=== PATIENT | female | born 1940 | race Caucasian/White ===

== ENCOUNTER → 2016-11-25 | Outpatient (CLI) | payer MEDICARE, BC ==
--- NOTE | 2016-11-25 20:00 | BD ---
EXAMINATION TYPE: MG DEXA axial skeleton. DATE OF EXAM: 11/25/2016 1:33 PM COMPARISON: 2013 CLINICAL HISTORY: 76-year-old female osteopenia Height: 5'1 Weight: 134 FRAX RISK QUESTIONS: Alcohol (3 or more units per day): no Family History (Parent hip fracture): no Glucocorticoids (More than 3mos): no (Ex: prednisone, prednisolone, methylprednisolone, dexamethasone, and hydrocortisone). History of Fracture in Adulthood: no Secondary Osteoporosis: 1. Type 1 Diabetes: no 2. Hyperthyroidism: no 3. Menopause before 45: no 4. Malnutrition: no 5. Chronic liver disease: no Rheumatoid Arthritis: no Current Tobacco Use: no RISK FACTORS HISTORY OF: History of Wrist Fracture: When: 20 years ago Other Fractures since Age 48: When: wrist 20 years ago Active: Postmenopausal woman: MEDICATIONS: Thyroid Medications: Which medication: Levothyroxine How Lon years Osteoporosis Medications: Which medication: reclast How Long: > 5 years Additional Medications: parkinson's, blood pressure , cholesterol Additional History: osteopenia EXAM MEASUREMENTS: Bone mineral densitometry was performed using the [employer] System. Bone mineral density as measured about the Lumbar spine is: ----- L1-L4(G/cm2): 0.916 T Score Values are as follows: ----- L2: -2.7 ----- L3: -1.7 ----- L4: -1.3 ----- L1-L4:-2.2 Bone mineral density has: Increased 2.8% since study of: 06/23/2014 Bone mineral density about the R hip (g/cm2): 0.762 Bone mineral density about the L hip (g/cm2): 0.767 T Score values are as follows: -----R Neck: -2.0 -----L Neck: -2.0 -----R Intertrochanter: -1.4 -----L Intertrochanter: -1.8 Bone mineral density has: Decreased -5.8% since study of: 06/23/2014 IMPRESSION: Osteoporosis as indicated by T score values in the lumbar spine. There is increased fracture risk and therapy is usually indicated based on age. Re-Screen 1-2 years. NOTE: T-SCORE=SD OF THE YOUNG ADULT MEAN.
== END | disposition home or self-care (01) ==
LOC: RADBDWWP 13:13
PROVIDERS: ATTEND Family Medicine
DX: M81.0 Age-related osteoporosis without current pathological fracture (principal)
CPT/HCPCS: 77080

== ENCOUNTER → 2017-03-03 | Outpatient (CLI) | payer MEDICARE, BC ==
[~2017-03-03] MED LIST: SODIUM CHLORIDE 0.9% 250 ML in EMPTY BAG 1 BAG IV PRN; SODIUM CHLORIDE 0.9% 500 ML in EMPTY BAG 1 BAG IV PRN; ZOLEDRONIC ACID 5 MG in SODIUM CHLORIDE 0.9% 100 ML IV ONE
[2017-03-03 14:08] VITALS: BP 142/93; PULSE 61; RESP 18; TEMP 97.5
== END | disposition home or self-care (01) ==
LOC: PROCWHC3 13:31
PROVIDERS: ATTEND Family Medicine
DX: M81.0 Age-related osteoporosis without current pathological fracture (principal)
CPT/HCPCS: 96365; J3489

== ENCOUNTER → 2017-05-27 | Outpatient (CLI) | payer MEDICARE, BC ==
[2017-05-27 14:22] LABS: Non-African American GFR(MDRD) >60 (>60 ml/min/1.73 sqM)
== END | disposition home or self-care (01) ==
LOC: LABWHC1 13:30
PROVIDERS: ATTEND Psychiatry & Neurology Neurology
DX: D32.9 Benign neoplasm of meninges, unspecified (principal); R25.1 Tremor, unspecified
CPT/HCPCS: 36415; 82565

== ENCOUNTER → 2017-06-07 | Outpatient (CLI) | payer MEDICARE, BC ==
--- NOTE | 2017-06-07 13:03 | MR ---
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 TECHNIQUE: Multiplanar, multisequence images of the brain and brainstem were acquired before and aft er administration of 12 mL IV MultiHance. Diffusion weighted imaging is performed. FINDINGS: No evidence for acute infarction, hemorrhage, mass effect, midline shift, herniation, effacement of b anthony cisterns, or extra-axial fluid collection. Redemonstrated round mildly T2 hyperintense, homogeneously enhancing extra-axial mass measuring 7 mm along the superior right frontal convexity. There is moderate generalized atrophy. No hydrocephalus. Major intracranial flow voids are intact. Dominant left vertebral artery. T2/FLAIR weighted sequences show mild scattered burden of right white matter foci in both cerebral he mispheres, unchanged from prior. Midline structures demonstrate normal morphology. The craniocervical junction is normal. Post contrast images demonstrate no evidence of pathologic enhancement. Dural venous sinuses are pat ent. Dental amalgam artifacts distorting the sinuses. Globes appear intact. IMPRESSION: Stable 7 mm enhancing extra-axial mass along the superior right frontal convexity suggestive of a men ingioma. Stable mild burden of chronic small vessel ischemic disease. Moderate atrophy is also stable.
== END | disposition home or self-care (01) ==
LOC: RADMRIMAIN 11:37
PROVIDERS: ATTEND Psychiatry & Neurology Neurology
DX: G31.9 Degenerative disease of nervous system, unspecified (principal); G93.89 Other specified disorders of brain; I67.82 Cerebral ischemia
CPT/HCPCS: 70553; A9577

== ENCOUNTER → 2018-01-02 | Day surgery (SDC) | payer MEDICARE, BC ==
[2018-01-02 07:27] VITALS: RESP 16; BMI 25.3
[2018-01-02 08:36] VITALS: BP 145/78; PULSE 56; TEMP 97.8
--- NOTE | 2018-01-02 09:09 | PCN ---
PROCEDURE NOTE The patient is a 77-year-old white female who underwent a routine mammogram after which additional views were requested and performed on 12/10/2017. On the additional views, the patient was noted to have no suspicious cluster of microcalcifications in the right breast. However, she was noted to have a suspicious group of heterogeneous calcifications in the middle depth upper outer quadrant of the left breast. The radiographs were reviewed and this area was documented in conjunction with the radiologist. A breast examination had been performed. The patient had denied any dominant mass or nodules of concern. No nipple discharge or changes and on physical examination, no dominant mass or nodules of concern in either breast on multi- positional exam and no axillary adenopathy of concern. It was discussed with the patient that she had an area of calcifications of concern in the left breast and the option of stereotactic biopsy was discussed with the patient. Risks including bleeding, infection, reaction to the anesthetic, inability to adequately sample the area was discussed with the patient as well. The patient wished to proceed with a stereotactic core biopsy. PROCEDURE: This is a dictation of the biopsy. The patient presented to the stereotactic unit for stereotactic core biopsy of the left breast. The location in the breast was in the middle depth upper outer quadrant. The approach used to target this was lateral to medial. The patient was placed on the stereo table and the area of concern was identified. The skin was then prepped using Betadine and 1% lidocaine with bicarb was used to anesthetize the skin and internally into the breast. The area of concern was identified. Needle was driven to the correct coordinates. Multiple core biopsies were obtained using a vacuum assisted 9-gauge biopsy device. Specimen radiograph was performed and calcifications were identified. A [employer] marker was then placed. Radiograph revealed position of the marker to be in the correct location. The specimen is sent to Pathology and patient will follow with Dr. Thomason in one week. The patient tolerated the procedure in stable condition. Please note that radiographs following the placement of the marker did reveal the marker was in correct location. MMODL / IJN: [id number] /
--- NOTE | 2018-01-02 12:13 | MM ---
EXAMINATION TYPE: MG stereo VAD BX LT DATE OF EXAM: 01/02/2018 COMPARISON: Outside institution mammograms dated 12/01/2017 and 12/10/2017 CLINICAL HISTORY: Indeterminate left breast calcifications for which stereotactic guided biopsy was recommended TECHNIQUE: Stereotactic guided core biopsy of left breast. FINDINGS: The procedure of stereotactic guided core biopsy was explained to the patient. Benefits, alternatives, and risks were discussed. An informed consent was then obtained. Preprocedural timeout was performed. The shortness pathway for biopsy was chosen. Shortness pathway was lateral medial approach. I performed the localization, then surgeon, Dr. Thomason performed the remainder of the procedure. A vacuum assisted biopsy gun was used to obtain multiple core samples. The patient tolerated the procedure well without any immediate complication. The patient was kept in the radiology department for short stay after the procedure and then discharged home in stable condition. Targeted calcifications are identified in specimen mammogram. Post biopsy mammogram shows the clip to appear in satisfactory position relative to the targeted area of concern on the preprocedure images. IMPRESSION: SUCCESSFUL, UNCOMPLICATED STEREOTACTIC GUIDED CORE BIOPSY OF INDETERMINATE CALCIFICATIONS IN THE UPPER OUTER LEFT BREAST IN , FULL PATHOLOGY RESULTS TO FOLLOW. 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 SEE SURGICAL PATHOLOGY CANCER CASE SUMMARY AND COMMENT Recommendation Surgical consult of the left breast. [facility]
== END ==
LOC: RADMAMWWP 07:09
PROVIDERS: ATTEND Surgery
DX: D05.12 Intraductal carcinoma in situ of left breast (principal)
CPT/HCPCS: 88305; 88342; 88341; 19081; A4648; J2001

== ENCOUNTER 2018-01-20 08:06 | Day surgery (SDC) | payer MEDICARE, BC ==
[2018-01-19 10:55] VITALS: BMI 26.2
[~2018-01-20 08:06] MED LIST changes: +DEXAMETHASONE SOD PHOSPHATE 10 MG/ML 1 ML VIAL IV ONE; +HEPARIN SODIUM,PORCINE 5,000 UNIT/ML 1 ML VIAL SQ ONE; +LIDOCAINE 1% 20 ML VIAL (10MG/ML) FOR IV START INTRADERMA PRN; +MIDAZOLAM 2 MG/2 ML VIAL IV PRN; +MORPHINE SULFATE 2 MG/ML SYRINGE IV PRN; +ONDANSETRON 4 MG/2 ML VIAL IVP ONE; +Pre Op ABX Message 1 EACH MISC MISCELLANE ONE; +SCOPOLAMINE 1.5MG/72HR PATCH TRANSDERM ONE; -SODIUM CHLORIDE 0.9% 250 ML in EMPTY BAG 1 BAG IV PRN; -SODIUM CHLORIDE 0.9% 500 ML in EMPTY BAG 1 BAG IV PRN; -ZOLEDRONIC ACID 5 MG in SODIUM CHLORIDE 0.9% 100 ML IV ONE
[2018-01-20] MEDS ORDERED: ALPRAZolam 0.25 MG TAB PO ONE (09:02)
[2018-01-20] MEDS: LACTATED RINGERS 1,000 ML IV SCH ×3 (09:03→12:36)
[2018-01-20] MEDS ORDERED: LIDOCAINE 1% INJ 10MG/ML (20 ML MDV) SQ ONE ×3 (09:35→12:20)
[2018-01-20] MEDS ORDERED: SODIUM BICARB 4% 5 ML VIAL (0.48 MEQ/ML) MISCELLANE ONE (09:35)
[2018-01-20] MEDS ORDERED: HEPARIN SODIUM,PORCINE 5,000 UNIT/ML 1 ML VIAL SQ ONE (11:02)
[2018-01-20] MEDS ORDERED: fentaNYL (PF) 50 MCG/ML 2 ML AMP ONE (11:33)
[2018-01-20] MEDS ORDERED: LIDOCAINE 1% INJ 10MG/ML (20 ML MDV) ONE (11:33)
[2018-01-20] MEDS ORDERED: SUCCINYLCHOLINE CHLORIDE 100 MG/5 ML SYR IV ONE (11:33)
[2018-01-20] MEDS ORDERED: PROPOFOL 10 MG/ML 20 ML VIAL IV ONE (11:33)
--- NOTE | 2018-01-20 12:17 | P.OP ---
Date of Procedure: 01/20/18 Preoperative Diagnosis: Ductal carcinoma in situ Postoperative Diagnosis: Same Procedure(s) Performed: Left breast lumpectomy Anesthesia: RONEL Surgeon: Marnie Thomason Estimated Blood Loss (ml): 15 IV fluids (ml): 300 Pathology: other (Breast tissue) Condition: stable Disposition: PACU Indications for Procedure: Ductal carcinoma in situ of the left breast Operative Findings: Dense breast tissue Description of Procedure: Patient was taken to the operating room and following induction of general anesthesia the left breast was prepped and draped in a sterile fashion. An incision was made near the needle placed for localization. Wide excision of the surrounding tissue was performed. The specimen was painted for orientation and sent to radiology for evaluation. Radiographic confirmation the area of concern had been removed was obtained. The wound was well irrigated. The deep tissues were closed using 3-0 Vicryl suture. The skin was closed using 4-0 Monocryl. Steri-Strips were applied. All instrument and sponge counts were correct at the end of the case. Patient tolerated the procedure in stable condition.
--- NOTE | 2018-01-20 12:19 | P.DS ---
Providers Attending physician: Marnie Thomason Primary care physician: Kiran Keller Plan - Discharge Summary New Discharge Prescriptions: No Action Cetirizine HCl [Zyrtec] 10 mg PO DAILY Levothyroxine Sodium [Synthroid] 75 mcg PO DAILY Enalapril/Hydrochlorothiazide [Vaseretic 5-12.5 mg] 1 each PO DAILY Simvastatin [Zocor] 40 mg PO DAILY Montelukast [Singulair] 10 mg PO HS Bonilla/D3/Mag11/Zinc/Director Of Emergency Nursing/Vidal/Bor [Caltrate 600+D Plus Tablet] 1 each PO DAILY Dicyclomine [Bentyl] 10 mg PO QID Citalopram Hydrobromide [CeleXA] 10 mg PO DAILY L.acidoph,Paracasei, B.lactis [Probiotic] 1 each PO DAILY Discharge Medication List Cetirizine HCl [Zyrtec] 10 mg PO DAILY 12/14/14 [History] Enalapril/Hydrochlorothiazide [Vaseretic 5-12.5 mg] 1 each PO DAILY 12/14/14 [ History] Levothyroxine Sodium [Synthroid] 75 mcg PO DAILY 12/14/14 [History] Montelukast [Singulair] 10 mg PO HS 12/14/14 [History] Simvastatin [Zocor] 40 mg PO DAILY 12/14/14 [History] Bonilla/D3/Mag11/Zinc/Director Of Emergency Nursing/Vidal/Bor [Caltrate 600+D Plus Tablet] 1 each PO DAILY 06/12 [History] Citalopram Hydrobromide [CeleXA] 10 mg PO DAILY 01/19/18 [History] Dicyclomine [Bentyl] 10 mg PO QID 01/19/18 [History] L.acidoph,Paracasei, B.lactis [Probiotic] 1 each PO DAILY 01/19/18 [History] Follow up Appointment(s)/Referral(s): Marnie Thomason MD [STAFF PHYSICIAN] - 1 Week Activity/Diet/Wound Care/Special Instructions: do not drive today do not drive if tking narcotic pain medication may shower after 48 hours wear surgical bra at all times Discharge Disposition: HOME SELF-CARE
[2018-01-20] MEDS ORDERED: IV FLUID CONTINUATION 800 ML IV ONE (12:38)
[2018-01-20 12:43] VITALS: TEMP 97
[2018-01-20 13:06] VITALS: RESP 16
[2018-01-20 14:32] VITALS: BP 171/70; PULSE 64
--- NOTE | 2018-01-20 15:25 | MM ---
EXAMINATION TYPE: MG pre op needle loc LT, MG surgical specimen LT DATE OF EXAM: 01/20/2018 COMPARISON: Previous exam 01/02/2018, 12/10/2017 CLINICAL HISTORY: Abnormal mammogram TECHNIQUE: Needle localization with wire placement and surgical excision of area of concern in the left breast. FINDINGS: The procedure of needle localization with wire placement and than surgical excision was explained to the patient. Benefits, alternatives, and risks were discussed. An informed consent was then obtained. The shortest pathway for procedure was chosen. Shortest pathway was superior- inferior approach. The overlying skin was prepped and draped in usual sterile fashion. Lidocaine buffered with bicarbonate was used as anesthetic into the skin and subcutaneous tissue up to the level of area of concern. A 7 cm needle was used. It was placed via a superior inferior approach under mammographic guidance. Subsequent 90 degrees mammogram show the needle to be in satisfactory position relative to the targeted area. At this point, wire was placed and the needle was withdrawn. The wire was fixed to patient's skin. Images were marked for surgeon. The patient tolerated the procedure well without any immediate complication. The patient was kept in the radiology department for short stay after the procedure and then taken to surgery for surgical excision. Targeted calcifications and clip and wire are identified in specimen mammogram. The patient was kept in hospital for short stay after the procedure and then discharged home in stable condition. IMPRESSION: Successful, uncomplicated needle localization with wire placement and surgical excision of suspicious group of calcifications in the left breast, full pathology results to follow. Pathology Results: Malignant LEFT BREAST (LUMPECTOMY): CHANGES CONSISTENT WITH PREVIOUS BIOPSY SITE, WITH RESIDUAL ESTIMATED 1.8 CM DUCTAL CARCINOMA IN-SITU, SOLID TYPE, INTERMEDIATE NUCLEAR GRADE, WITH MICROCALCIFICATIONS (MARGINS CLEAR - SEE COMMENT). Notes The features are generally similar to those seen in previous core biopsy material ([id number], reported 01/06/18). The current specimen shows biopsy site changes with a fairly broad residual area of ductal carcinoma in-situ that is predominantly solid and considered to exhibit an intermediate nuclear grade, with scattered microcalcifications. The margins are free of tumor, the closest margin at the inferior green inked aspect lying 1.5 mm from tumor. The template below summarized the features of this case. SURGICAL PATHOLOGY CANCER CASE SUMMARY - DCIS OF THE BREAST (Resection) Recommendation Surgical consult of the left breast. [facility]
== END 2018-01-20 14:34 | disposition home or self-care (01) ==
LOC: OR 08:06
PROVIDERS: ATTEND Surgery
DX: D05.12 Intraductal carcinoma in situ of left breast (principal); R92.0 Mammographic microcalcification found on diagnostic imaging of breast; J45.909 Unspecified asthma, uncomplicated; F41.9 Anxiety disorder, unspecified; I10 Essential (primary) hypertension; E78.5 Hyperlipidemia, unspecified; E07.9 Disorder of thyroid, unspecified; F32.9 Major depressive disorder, single episode, unspecified; Z79.890 Hormone replacement therapy; Z79.899 Other long term (current) drug therapy
CPT/HCPCS: 19301; 88307; 76098; 19281; J1644; J1100; J2405; J2001; J3010; J0330; J2704

== ENCOUNTER → 2018-04-09 | Outpatient (CLI) | payer MEDICARE, BC ==
[~2018-04-09] MED LIST changes: -DEXAMETHASONE SOD PHOSPHATE 10 MG/ML 1 ML VIAL IV ONE; -HEPARIN SODIUM,PORCINE 5,000 UNIT/ML 1 ML VIAL SQ ONE; -LIDOCAINE 1% 20 ML VIAL (10MG/ML) FOR IV START INTRADERMA PRN; -MIDAZOLAM 2 MG/2 ML VIAL IV PRN; -MORPHINE SULFATE 2 MG/ML SYRINGE IV PRN; -ONDANSETRON 4 MG/2 ML VIAL IVP ONE; -Pre Op ABX Message 1 EACH MISC MISCELLANE ONE; -SCOPOLAMINE 1.5MG/72HR PATCH TRANSDERM ONE; +SODIUM CHLORIDE 0.9% 500 ML in EMPTY BAG 1 BAG IV PRN; +ZOLEDRONIC ACID 5 MG in SODIUM CHLORIDE 0.9% 100 ML IV ONE
[2018-04-09 14:22] VITALS: BP 117/75; PULSE 71; RESP 18; TEMP 97.5
== END | disposition home or self-care (01) ==
LOC: PROCWHC3 13:55
PROVIDERS: ATTEND Family Medicine
DX: M81.0 Age-related osteoporosis without current pathological fracture (principal)
CPT/HCPCS: 96365; J3489

== ENCOUNTER → 2018-04-09 | Outpatient (CLI) | payer MEDICARE, BC ==
[2018-04-09 15:15] VITALS: BP 124/81; PULSE 62; BMI 25.3
--- NOTE | 2018-04-09 16:03 | P.GSHP ---
History of Present Illness H&P Date: 04/09/18 Patient is a 77-year-old white female status post left breast lumpectomy for ductal carcinoma in situ with clear margins performed 01-20-18. the patient was seen by medical and radiation oncology as follows she recalls and was told that she was not recommended for any further treatment. She has no complaints. - Constitutional Constitutional: Denies chills, Denies fever - EENT Eyes: denies pain, denies loss of vision Ears: deny: decreased hearing, earache, tinnitus Ears, nose, mouth and throat: Denies headache, Denies sore throat - Breasts Comment: pre cancer left breast Breasts: bilateral: as per HPI - Cardiovascular Cardiovascular: Denies chest pain, Denies shortness of breath - Respiratory Respiratory: Denies cough, Denies 7 - Gastrointestinal Gastrointestinal: Denies abdominal pain, Denies diarrhea, Denies nausea, Denies vomiting - Genitourinary (Female) Genitourinary: Denies dysuria, Denies hematuria - Menstruation Menstruation: Reports postmenopausal - Musculoskeletal Comment: arthritis - Integumentary Integumentary: Denies pruritus, Denies rash - Neurological Neurological: Denies numbness, Denies weakness - Psychiatric Psychiatric: Reports depression - Endocrine Endocrine: Denies fatigue, Denies weight change - Hematologic/Lymphatic Comment: none - Allergic/Immunologic Comment: none Past Medical History Past Medical History: Asthma, Hyperlipidemia, Hypertension, Thyroid Disorder Additional Past Medical History / Comment(s): ,varicose veins, IBS, History of Any Multi-Drug Resistant Organisms: None Reported Past Surgical History: Breast Surgery, Hysterectomy, Tonsillectomy Additional Past Surgical History / Comment(s): left breast biopsy Past Anesthesia/Blood Transfusion Reactions: No Reported Reaction Past Psychological History: Anxiety Smoking Status: Never smoker Past Alcohol Use History: None Reported Past Drug Use History: None Reported - Past Family History Mother Family Medical History: No Reported History Medications and Allergies Home Medications Medication Instructions Recorded Confirmed Type Cetirizine HCl [Zyrtec] 10 mg PO DAILY 12/14/14 04/09/18 History Enalapril/Hydrochlorothiazide 1 each PO DAILY 12/14/14 04/09/18 History [Vaseretic 5-12.5 mg] Levothyroxine Sodium [Synthroid] 75 mcg PO DAILY 12/14/14 04/09/18 History Montelukast [Singulair] 10 mg PO HS 12/14/14 04/09/18 History Simvastatin [Zocor] 40 mg PO DAILY 12/14/14 04/09/18 History Bonilla/D3/Mag11/Zinc/International Nurse/Vidal/Bor 1 each PO DAILY 03/03/17 04/09/18 History [Caltrate 600+D Plus Tablet] L.acidoph,Paracasei, B.lactis 1 each PO DAILY 01/19/18 04/09/18 History [Probiotic] Carbidopa-Levodopa 25-100 mg 1 tab PO DAILY 04/09/18 04/09/18 History [Sinemet 25-100 mg] Allergies Allergy/AdvReac Type Severity Reaction Status Date / Time No Known Allergies Allergy Verified 04/09/18 14:18 Surgical - Exam Vital Signs Pulse BP Pulse Ox 62 124/81 100 04/09/18 15:10 04/09/18 15:10 04/09/18 15:10 - General no distress - Eyes normal ocular movement - ENT no hearing loss, no congestion - Neck no masses - Respiratory normal respiratory effort, clear to auscultation - Cardiovascular Rhythm: regular Heart Sounds: normal: S1, S2 - Abdomen Abdomen: soft, non tender, no guarding, no rigid, no rebound - Integumentary rash under her left breast, appears to be a fungal infection - Neurologic no disoriented, no combative - Musculoskeletal normal gait - Psychiatric oriented to time, oriented to person, oriented to place, speech is normal, memory intact breast examination: Right breast: Multiple strokes exam no dominant masses or nodules of concern Right axilla: No adenopathy of concern Left breast: Reveals scar from prior surgery no dominant masses or nodules of concern Left axilla: No adenopathy of concern Assessment and Plan Assessment: Impression/plan: 1. Status post left breast lumpectomy for ductal carcinoma in situ 2. We will confirm the patient has had an appointment with medical and radiation oncology 3. Apparent fungal infection under the left breast will start on antifungal cream and follow up in 2 weeks Cc: Dr. Kiran Keller
== END | disposition home or self-care (01) ==
LOC: WWCWWP 14:58
PROVIDERS: ATTEND Surgery
DX: Z53.9 Procedure and treatment not carried out, unspecified reason (principal)

== ENCOUNTER → 2018-06-03 | Outpatient (CLI) | payer MEDICARE, BC ==
--- NOTE | 2018-06-03 13:15 | ECHOF ---
Referral Reason:I95.9 Hypertension MEASUREMENTS -------- HEIGHT: 154.9 cm WEIGHT: 59.0 kg BP: RVIDd: 2.2 cm (< 3.3) IVSd: 0.9 cm (0.6 - 1.1) LVIDd: 3.5 cm (3.9 - 5.3) LVPWd: 1.0 cm (0.6 - 1.1) IVSs: 1.2 cm LVIDs: 2.4 cm LVPWs: 1.2 cm LAESV Index (A-L): 20.78 ml/m Ao Diam: 3.2 cm (2.0 - 3.7) AV Cusp: 1.8 cm (1.5 - 2.6) LA Diam: 2.9 cm (2.7 - 3.8) EPSS: 0.4 cm MV E Rashid: 0.73 m/s MV DecT: 255 ms MV A Rashid: 0.83 m/s MV E/A Ratio: 0.88 RAP: 5.00 mmHg RVSP: 41.31 mmHg MV EF SLOPE: 82.85 mm/s (70 - 150) MV EXCURSION: 1.46 cm (> 18.000) FINDINGS -------- Sinus rhythm. This was a technically adequate study. The left ventricular size is normal. Left ventricular wall thickness is normal. Overall left vent ricular systolic function is normal with, an EF between 55 - 60 %. The right ventricle is normal in size and function. Normal LA size by volume 22+/-6 ml/m2. The right atrium is normal in size. Aortic valve is trileaflet and is mildly thickened. There is no evidence of aortic regurgitation. There is no evidence of aortic stenosis. The mitral valve leaflets are mildly thickened. There is trace to mild mitral regurgitation. Mild tricuspid regurgitation present. There is mild pulmonary hypertension. The right ventricular systolic pressure, as measured by Doppler, is 41.31mmHg. Trace/mild (physiologic) pulmonic regurgitation. The aortic root size is normal. Normal inferior vena cava with normal inspiratory collapse consistent with estimated right atrial pre ssure of 5 mmHg. There is no pericardial effusion. CONCLUSIONS -------- 1. Sinus rhythm. 2. This was a technically adequate study. 3. The left ventricular size is normal. 4. Left ventricular wall thickness is normal. 5. Overall left ventricular systolic function is normal with, an EF between 55 - 60 %. 6. Normal LA size by volume 22+/-6 ml/m2. 7. Aortic valve is trileaflet and is mildly thickened. 8. The mitral valve leaflets are mildly thickened. 9. There is trace to mild mitral regurgitation. 10. Mild tricuspid regurgitation present. 11. There is mild pulmonary hypertension. 12. The right ventricular systolic pressure, as measured by Doppler, is 41.31mmHg. 13. Trace/mild (physiologic) pulmonic regurgitation. 14. The aortic root size is normal. 15. There is no pericardial effusion. DYEING MACHINE TENDER: Vinnie Jackson RDCS
--- NOTE | 2018-06-08 11:33 | HM ---
HOLTER MONITOR REPORT DATE OF SERVICE: 06/03/2018 The patient was monitored for 24 hours. The baseline rhythm appeared to be a sinus mechanism with a minimum heart rate of 47 beats per minute, max heart rate 159 beats per minute and average heart rate of 69 beats per minute. were presented in less than 1% of the total beats count and presented as a single PVCs as well as in bigeminy and trigeminy. No evidence of any nonsustained VT noted. Supraventricular ectopic events were presented in less than 1% of the total beats count as well and presented in premature atrial contractions. The patient did have multiple episodes of narrow complex tachycardia represent atrial tachycardia. No evidence of sinus pause or sinus arrest noted. CONCLUSION: 1. Sinus rhythm as a baseline mechanism. 2. Rare ventricular ectopic events. 3. Rare supraventricular ectopic events. 4. The patient did have multiple episodes of paroxysmal atrial tachycardia with quite fast heart rate. 5. No evidence of sinus pause or sinus arrest. 6. The patient reported no symptoms. MMODL / IJN: [id number] /
== END | disposition home or self-care (01) ==
LOC: RADECHMAIN 11:22
PROVIDERS: ATTEND Family Medicine
DX: I49.3 Ventricular premature depolarization (principal); I47.1 Supraventricular tachycardia; I27.20 Pulmonary hypertension, unspecified; I07.1 Rheumatic tricuspid insufficiency; I05.9 Rheumatic mitral valve disease, unspecified
CPT/HCPCS: 93225; 93226; 93306

== ENCOUNTER → 2018-06-08 | Outpatient (CLI) | payer MEDICARE, BC ==
--- NOTE | 2018-06-08 17:10 | US ---
EXAMINATION TYPE: US carotid duplex BILAT DATE OF EXAM: 06/08/2018 COMPARISON: 07/03/2010 CLINICAL HISTORY: D32.0 Intracranial meningioma. EXAM MEASUREMENTS: RIGHT: Peak Systolic Velocity (PSV) cm/sec ----- Right CCA: 70.2 ----- Right ICA: 82.0 ----- Right ECA: 78.7 ICA/CCA ratio: 1.2 RIGHT: End Diastole cm/sec ----- Right CCA: 17.5 ----- Right ICA: 24.8 ----- Right ECA: 9.5 LEFT: Peak Systolic Velocity (PSV) cm/sec ----- Left CCA: 86.4 ----- Left ICA: 86.2 ----- Left ECA: 70.3 ICA/CCA ratio: 1.0 LEFT: End Diastole cm/sec ----- Left CCA: 20.4 ----- Left ICA: 26.7 ----- Left ECA: 7.5 VERTEBRALS (direction of flow): Right Vertebral: Antegrade Left Vertebral: Antegrade Rhythm: Normal No significant stenosis seen, no elevated velocities. Mild bilateral plaque. IMPRESSION: There is antegrade flow in the vertebral arteries. The images and measurements suggest l ess than 25% stenosis in both internal carotid arteries. No adverse change compared to old exam. Criteria for Assigning % of Stenosis / Diameter reduction (Estimation based on the indirect measurements of the internal carotid artery velocities (ICA PSV). 1. Normal (no stenosis)=ICA PSV < 125 cm/s: ratio < 2.0: ICA EDV<40 cm/s. 2. Less than 50% stenosis=ICA PSV < 125 cm/s: ratio < 2.0: ICA EDV<40 cm/s. 3. 50 to 69% stenosis=ICA PSV of 125 to 230 cm/s: ration 2.0 ? 4.0: ICA EDV 40-100 cm/s. 4. Greater than 70% stenosis to near occlusion= ICA PSV > 230 cm/s: ratio > 4.0: ICA EDV > 100 cm/s. 5. Near occlusion= ICA PSV velocities may be low or undetectable: variable ratio and ICA EDV. 6. Total occlusion=unable to detect flow.
--- NOTE | 2018-06-08 17:45 | XR ---
EXAMINATION TYPE: XR lumbar spine 2 or 3V DATE OF EXAM: 06/08/2018 COMPARISON: NONE HISTORY: Chronic low back pain TECHNIQUE: 3 views FINDINGS: There is a mild lumbar levorotoscoliosis. There is degenerative disc space narrowing from L 2 to L5. There is no compression fracture. Sacroiliac joints appear intact. IMPRESSION: Mild spondylotic changes and levoscoliosis. No fracture.
--- NOTE | 2018-06-08 22:40 | MR ---
EXAMINATION TYPE: MR brain wo con DATE OF EXAM: 06/08/2018 COMPARISON: Prior MRI brain June 07, 2017 and older studies. HISTORY: Intracranial meningioma TECHNIQUE: Multiplanar, multisequence imaging of the brain and brainstem is performed without IV cont rast. FINDINGS: Diffusion weighted images demonstrate no evidence of a recent infarct or other diffusion abnormality. There is no worrisome extra-axial fluid collection. There is diffuse ventricular and sulcal prominenc e consistent with diffuse cerebral atrophy. Some scattered foci of T2 hyperintensity are redemonstrat ed throughout the white matter bilaterally. Approximately 10 scattered lesions are again seen. The la rgest is 5 mm left frontal lesion axial image 20 which is stable. Midline structures demonstrate normal morphology. The craniocervical junction appears within normal limits. Normal vascular flow voids are present. Dominant left vertebral artery is redemonstrated. The re is persistent stable round T2 hyperintense 6 mm lesion high right frontal lobe axial image 29 cons istent with tiny meningioma. Visualized sinuses are clear. Globes are intact bilaterally. Less distor tion noted on current study at level of maxillary sinuses. IMPRESSION: Stable 6 mm high right frontal meningioma. Stable mild diffuse cerebral atrophy and chron ic small vessel ischemic change.
== END | disposition home or self-care (01) ==
LOC: RADUSWWP 16:33
PROVIDERS: ATTEND Family Medicine
DX: D32.0 Benign neoplasm of cerebral meninges (principal); G31.9 Degenerative disease of nervous system, unspecified; I67.82 Cerebral ischemia; I65.23 Occlusion and stenosis of bilateral carotid arteries; M47.816 Spondylosis without myelopathy or radiculopathy, lumbar region; M41.9 Scoliosis, unspecified
CPT/HCPCS: 70551; 72100; 93880

== ENCOUNTER → 2019-07-15 | Outpatient (CLI) | payer MEDICARE, BC ==
--- NOTE | 2019-07-16 09:08 | MM ---
Reason for exam: additional evaluation requested from prior study. Last mammogram was performed 1 year and 6 months ago. History: Patient is postmenopausal, has history of breast cancer at age 77, and is nulliparous. Malignant MG pre op needle loc LT of the left breast, January 20, 2018. Lumpectomy of the left breast, January 20, 2018. Malignant MG stereo VAD BX LT of the left breast, January 02, 2018. Stereotactic core biopsy of the left breast, January 02, 2018. Physical Findings: Nurse did not find any significant physical abnormalities on exam. MG 3D Diag Mammo Wo Cad BLAYNE Bilateral CC and MLO view(s) were taken. Prior study comparison: January 02, 2018, left breast mammogram, performed at [facility]. December 10, 2017, bilateral mammogram, performed at [facility]. December 01, 2017, bilateral mammogram, performed at [facility]. July 08, 2016, bilateral mammogram, performed at [facility]. The breast tissue is heterogeneously dense. This may lower the sensitivity of mammography. Post lumpectomy changes in the left upper outer quadrant. Stable scattered fat necrosis calcifications. Short interval follow up left breast to assess any evolving changes. These results were verbally communicated with the patient and result sheet given to the patient on 07/15/19. ASSESSMENT: Probably benign, BI-RAD 3 RECOMMENDATION: Follow-up diagnostic mammogram of the left breast in 6 months.
== END | disposition home or self-care (01) ==
LOC: RADMAMWWP 15:41
PROVIDERS: ATTEND Family Medicine
DX: R92.1 Mammographic calcification found on diagnostic imaging of breast (principal); Z85.3 Personal history of malignant neoplasm of breast; Z78.0 Asymptomatic menopausal state
CPT/HCPCS: 77066; G0279; 77062

== ENCOUNTER → 2019-08-06 | Outpatient (CLI) | payer MEDICARE, BC ==
[2019-08-06 10:11] LABS: HCT 39.7 % (34.0-46.0); HGB 12.6 gm/dL (11.4-16.0); MCH 32.6 pg (25.0-35.0); MCHC 31.7 g/dL (31.0-37.0); MCV 102.9 fL (80.0-100.0); Macrocytosis Slight; Mean Platelet Volume 8.8; Platelet Count 186 k/uL (150-450); RBC 3.86 m/uL (3.80-5.40); RDW 14.3 % (11.5-15.5); WBC 5.3 k/uL (3.8-10.6)
[2019-08-06 10:24] LABS: Albumin 4.1 g/dL (3.5-5.0); Calcium 9.6 mg/dL (8.4-10.2); Potassium 4.5 mmol/L (3.5-5.1); Total Bilirubin 0.7 mg/dL (0.2-1.3); Total Protein 6.3 g/dL (6.3-8.2)
[2019-08-06 10:27] LABS: INR 0.9 (<1.2); Partial Thromboplastin Time 22.1 sec (22.0-30.0); Prothrombin Time 10.1 sec (9.0-12.0)
[2019-08-06 11:25] LABS: Appearance,Urine Clear (Clear); Bilirubin,Urine Negative (Negative); Blood,Urine Negative (Negative); Color,Urine Yellow; Glucose,Urine (UA) Negative (Negative); Ketones,Urine Negative (Negative); Leukocyte Esterase,Urine Negative (Negative); Nitrite,Urine Negative (Negative); PH, Urine 7.5 (5.0-8.0); Protein,Urine Negative (Negative); Specific Gravity,Urine 1.011 (1.001-1.035); Urobilinogen,Urine <2.0 mg/dL (<2.0)
== END | disposition home or self-care (01) ==
LOC: LABPAT 09:22
PROVIDERS: ATTEND Orthopaedic Surgery
DX: Z01.812 Encounter for preprocedural laboratory examination (principal); M17.11 Unilateral primary osteoarthritis, right knee
CPT/HCPCS: 36415; 80053; 81003; 85027; 85610; 85730; 87070

== ENCOUNTER 2019-08-17 11:43 | Day surgery (SDC) | payer MEDICARE, BC ==
[~2019-08-17 11:43] MED LIST changes: +ACETAMINOPHEN TAB 500 MG TAB PO ONE; +DEXAMETHASONE SOD PHOSPHATE 10 MG/ML 1 ML VIAL IV ONE; +GABAPENTIN 300 MG CAP PO ONE; +LIDOCAINE 1% 20 ML VIAL (10MG/ML) FOR IV START INTRADERMA PRN; +MELOXICAM 7.5 MG TAB PO ONE; +ONDANSETRON 4 MG/2 ML VIAL IVP ONE; +ROPIVACAINE 246.25 MG, EPINEPHrine 0.5 MG, KETOROLAC 30 MG, cloNIDine HCL/PF 80 MCG, WA... MISCELLANE ONE; -SODIUM CHLORIDE 0.9% 500 ML in EMPTY BAG 1 BAG IV PRN; +TRANEXAMIC ACID 1,000 MG in SODIUM CHLORIDE 0.9% 100 ML IVPB ONE; -ZOLEDRONIC ACID 5 MG in SODIUM CHLORIDE 0.9% 100 ML IV ONE; +fentaNYL (PF) 50 MCG/ML 2 ML AMP IV PRN
[2019-08-17] MEDS: LACTATED RINGERS 1,000 ML IV SCH (12:38)
[2019-08-17] MEDS ORDERED: MIDAZOLAM 2 MG/2 ML VIAL IVP ONE (12:51)
[2019-08-17] MEDS ORDERED: BISACODYL 10 MG SUPP RECTAL PRN (14:05)
[2019-08-17] MEDS ORDERED: HYDROmorphone 0.5 MG/0.5 ML SYRINGE IVP PRN ×3 (14:05)
[2019-08-17] MEDS ORDERED: DIAZEPAM 5 MG TAB PO PRN (14:05)
[2019-08-17] MEDS ORDERED: NALOXONE 0.4 MG/ML 1 ML VIAL IV PRN (14:05)
[2019-08-17] MEDS ORDERED: HYDROcodone/APAP 5-325MG 1 EACH TAB PO PRN ×2 (14:05)
[2019-08-17] MEDS ORDERED: MAGNESIUM HYDROXIDE 2,400 MG/10 ML CUP PO PRN (14:05)
[2019-08-17] MEDS ORDERED: ONDANSETRON 4 MG/2 ML VIAL IVP PRN (14:05)
[2019-08-17] MEDS ORDERED: NA PHOS,M-B/NA PHOS,DI-BA 133 ML ENEMA RECTAL PRN (14:05)
[2019-08-17] MEDS ORDERED: LIDOCAINE 1% INJ 10MG/ML (20 ML MDV) ONE (14:09)
[2019-08-17] MEDS ORDERED: MIDAZOLAM 2 MG/2 ML VIAL ONE (14:09)
[2019-08-17] MEDS ORDERED: SODIUM CHLORIDE 0.9% 100 ML BAG ONE (14:09)
[2019-08-17] MEDS ORDERED: fentaNYL (PF) 50 MCG/ML 2 ML AMP ONE (14:09)
[2019-08-17] MEDS ORDERED: TRANEXAMIC ACID 1,000 MG/10 ML VIAL ONE (14:09)
[2019-08-17] MEDS ORDERED: SUCCINYLCHOLINE CHLORIDE 100 MG/5 ML SYR IV ONE (14:09)
[2019-08-17] MEDS ORDERED: PROPOFOL 10 MG/ML 20 ML VIAL IV ONE (14:09)
[2019-08-17] MEDS ORDERED: ROPIVACAINE 0.2%-NS ON-Q PUMP 1,090 MG, EMPTY PAIN BALL 1 EACH MISCELLANE PRN ×2 (14:38→15:29)
[2019-08-17] MEDS ORDERED: ceFAZolin 3,000 MG in SODIUM CHLORIDE 0.9% IRRIGATIO 3,000 ML IRRIGATION ONE (14:43)
--- NOTE | 2019-08-17 14:48 | P.ANPRN ---
Procedure Note - Anesthesia - Nerve Block Performed Right Adductor Canal Infusion Time Out Performed: Yes Date of Procedure: 08/17/19 Procedure Start Time: 12:51 Procedure Stop Time: 13:02 Location of Patient Procedure: PreOp Indication: Acute Post-Operative Pain, Requested by Surgeon Specifically requested for management of pain by DrFior: Dedrick Hassan Sedation Type: Sedate with meaningful contact maintained Preparation: Sterile Prep Position: Supine Catheter Depth at Skin (cm): 6 Catheter: Indwelling Needle Types: Pajunk Needle Gauge: 18 Ultrasound used to visualize needle placement: Yes Ultrasound used to observe medication spread: Yes Injectate: 0.5% Ropivacaine (see comment for volume) (20 cc) Blood Aspirated: No Pain Paresthesia on Injection Noted: No Resistance on Injection: Normal Image Stored and Saved: Yes Events: Uneventful and Well Tolerated
--- NOTE | 2019-08-17 15:31 | P.OP ---
Date of Procedure: 08/17/19 Preoperative Diagnosis: Severe osteoarthritis right knee Postoperative Diagnosis: Severe osteoarthritis right knee Procedure(s) Performed: Right total knee arthroplasty Implants: Meza and Nephew Journey II CR Oxinium cruciate retaining femoral component size 4, right Meza [employer] Nephew Journey right nonporous tibial baseplate size 3 Meza [employer] Nephew Journey II, XLPE Deep Dished articular insert, size 10 mm, Size 3-4 right Meza [employer]hew Journey BCS resurfacing oval patellar component, 29 mm All components were cemented using Palacos R bone cement.. The articulation is Oxinium on polyethylene. Anesthesia: spinal Surgeon: Dedrick Hassan Tile Mechanic #1: Minnie Naranjo Estimated Blood Loss (ml): 25 Pathology: other (Bone and cartilage) Condition: stable Disposition: PACU Indications for Procedure: After failure of conservative treatment we discussed the surgical and nonsurgical treatment options at length. Patient wishes to proceed with a total knee arthroplasty. Complications specific to this procedure were discussed at length, including but not limited to infection, bleeding, stiffness, and nerve injury. Patient is aware of all these complications and informed consent was obtained Operative Findings: The operative findings are consistent with severe osteoarthritis of the right knee Description of Procedure: Patient was seen in the preoperative area consent was reviewed and operative site was marked with a skin marker. An adductor canal pain catheter was placed by anesthesia in the preoperative area. Patient was then brought to the opera ting room and given preoperative antibiotics intravenously. A spinal anesthetic was administered by the anesthesia department. A tourniquet was placed on the upper thigh and the lower extremity was prepped and draped in usual sterile fashion. A gram of transexamic acid was given. A universal timeout was then performed which confirmed the patient's name, surgical site, ALLERGIES, and consent. The lower extremity was then exsanguinated and tourniquet was inflated to 250 mmHg. A standard and anterior midline approach to the knee was performed. The skin and subcutaneous tissue was dissected down to the patellar tendon. A medial parapatellar arthrotomy was then performed. The knee was then extended, the patellar was everted, and the knee was again flexed. Anterior horns of both menisci were excised, and a release was performed to the posterior medial aspect of the knee. On gross visual inspection, there was complete loss of articular cartilage in the medial and patellofemoral joint spaces. There was also significant cartilage damage in the lateral compartment. There were multiple periarticular osteophytes which were then removed with a Ronguer. The femoral canal was then opened with the appropriate drill, and the intramedullary femoral cutting guide was then placed and set for 5 of valgus. The distal femoral cutting block was then pinned in place, and the distal femur was then cut. The cutting block was then removed and the cut was checked for flatness. Next, the sizing guide was then placed and set for 3 external rotation based off of the epicondylar axis and Whitesides line. After the femur was sized, the appropriate 4-in-1 cutting block was then pinned in place. The anterior condyles were cut without notching. The posterior and chamfer cuts were perfo rmed while protecting the collateral ligaments. The cutting block was then removed, and the femoral canal was plugged with autologous bone. Attention was then directed to the tibia. The remaining ACL was removed with a Ronguer, and the tibia was then gently subluxed forward with a large bent knee retractor. Any remaining menisci was excised. The posterior lateral corner was cauterized in order to cauterize the lateral geniculate artery. The extra medullary tibial cutting guide was then placed, set for the appropriate rotation, slope, and depth of resection. The proximal tibia cutting guide was then pinned in place. Proximal tibia was then cut and sized. Next trials were then placed with the appropriate-sized insert. The knee was able to fully extend and flex to 130 and was stable throughout all range of motion. The knee was then extended, patella everted. Patella was then measured, and then using an osteotomy guide, the patella was cut at the appropriate level. The patella was then measured and drilled and the patella trial was then placed. The knee was then taken through range of motion with the patella trial and the patella tracked normally. The knee was then extended patella trial was then removed and the patella was everted. Knee was then flexed and lug holes were drilled through the femoral trial and the femoral trial was then removed. The tibial was then exposed, and the tibial broach guide was then pinned in place after it was set for the appropriate rotation to allow for the most coverage without overhang. The tibia was then reamed and broached. The cut surfaces of bone were then irrigated with pulsatile lavage. The posterior structures were injected with the ropivacaine solution. The knee was also irrigated with Irrisept solution. The components were then opened, the cement was mixed, and the components were then cemented in place. The cement was allowed to harden with the knee in full extension. While the cement was hardening, the remaining soft tissues were then injected with a ropivacaine solution, which consisted of 246.25 mg of ropivacaine, 0.5 mg of epinephrine, 30 mg of Toradol, 80 g of clonidine, and 48.45 mL of sterile water, for a total of 100 mL of fluid injected. After the cemented hardened. The tourniquet was released, and hemostasis was obtained. A second gram of transexamic acid was given. The knee was again irrigated. The knee was again taken through range of motion and found to be stable throughout all range of motion of 0-130, and the patella tracked normally. The fascia was then closed with #2 strata fix suture. The subcutaneous tissue was closed with 3-0 Vicryl and 3-0 strata fix. Dermabond glue was used for the skin and placed with the knee in flexion. The patient was placed in a sterile silver dressing. Patient was then transferred to recovery room in stable condition. The seismic survey assistant NIKOLAI Morales was required due the complexity surgery and the need for a skilled certified surgical technician. She assisted in positioning, draping, retraction, and closure of the wound.
[2019-08-17] MEDS ORDERED: LACTATED RINGERS 1,000 ML IV ONE (15:35)
--- NOTE | 2019-08-17 16:29 | XR ---
EXAMINATION TYPE: XR knee limited RT DATE OF EXAM: 08/17/2019 COMPARISON: NONE HISTORY: 79-year-old female evaluation for postoperative abnormality in alignment TECHNIQUE: 2 views FINDINGS: Images show placement of right hemiarthroplasty. Both distal femoral and proximal tibial components o f the prosthesis appear well seated without periprosthetic fracture. Alignment grossly anatomic. Ante rior soft tissue swelling with scattered soft tissue air as well as intra-articular air related to re cent operation. IMPRESSION: Uncomplicated postoperative appearance right total knee arthroplasty.
[2019-08-17] MEDS: HYDROmorphone 0.5 MG/0.5 ML SYRINGE IVP PRN ×2 (16:36→16:48)
[2019-08-17] MEDS: SODIUM CHLORIDE 0.9% 1,000 ML IV SCH (16:55)
[2019-08-17 18:12] VITALS: BMI 23.6
[2019-08-17] MEDS ORDERED: MONTELUKAST 10 MG TAB PO SCH (21:00)
[2019-08-17] MEDS ORDERED: SENNOSIDES-DOCUSATE SODIUM 1 EACH TAB PO SCH (21:00)
[2019-08-17] MEDS: ASPIRIN 325 MG TAB PO SCH (21:03)
[2019-08-18] MEDS: LACTATED RINGERS 1,000 ML IV SCH (01:01)
[2019-08-18] MEDS: SODIUM CHLORIDE 0.9% 1,000 ML IV SCH (06:22)
[2019-08-18] MEDS ORDERED: LEVOTHYROXINE 75 MCG TAB PO SCH (06:30)
[2019-08-18 07:32] VITALS: BP 111/61; PULSE 69; RESP 12; TEMP 98.4
[2019-08-18] MEDS: ASPIRIN 325 MG TAB PO SCH (08:30)
[2019-08-18] MEDS ORDERED: CARBIDOPA-LEVODOPA 25-100 MG 1 EACH TAB PO SCH (09:00)
[2019-08-18] MEDS ORDERED: ATORVASTATIN 20 MG TAB PO SCH (09:00)
[2019-08-18] MEDS ORDERED: MELOXICAM 7.5 MG TAB PO SCH (09:00)
--- NOTE | 2019-08-18 09:07 | P.DS ---
Providers Expected date of discharge: 08/18/19 Attending physician: Dedrick Hassan Consults: 08/17/19 14:05 Consult Physician Routine Consulting Provider: Kiran Keller Consult Reason/Comments: medical management Do you want consulting provider notified?: Yes Primary care physician: Kiran Keller - Discharge Diagnosis(es) (1) S/P total knee arthroplasty Current Visit: Yes Status: Acute (2) Osteoarthritis of right knee Current Visit: Yes Status: Acute Hospital Course: This is a 79-year-old female with known history of degenerative arthritis of the right knee. The patient presents for evaluation. After discussion and consideration patient elects to proceed with total knee arthroplasty. The patient is seen preoperatively by Dr. Hassan and medically cleared for surgery by their primary care physician. Patient is admitted to [facility] on 08/17/2019 for total knee arthroplasty. The procedures performed without complication or sequelae. The patient is doing well postoperatively. Labs and vital signs are stable on day of discharge. On day of discharge patient's knee incision is healing well. There is minimal erythema. There is no drainage noted at this time. There is minimal soft tissue swelling to the knee. Patient has full foot and ankle motion without difficulty or pain. Calf is soft and nontender to palpation. Neurovascular status to the right lower extremity is intact. Patient is discharged home in good condition. Opioid start talking form is reviewed and signed at patient bedside. Please see med rec for accurate list of home medications. Plan - Discharge Summary Discharge Rx Participant: Yes New Discharge Prescriptions: New Aspirin 325 mg PO BID #60 tab HYDROcodone/APAP 5-325MG [[place] 5-325] 1 - 2 tab PO Q6HR PRN #56 tab PRN Reason: Pain Sennosides [Senokot] 1 tab PO BID #60 tablet No Action Cetirizine HCl [Zyrtec] 10 mg PO DAILY Levothyroxine Sodium [Synthroid] 75 mcg PO DAILY Enalapril/Hydrochlorothiazide [Vaseretic 5-12.5 mg] 1 each PO DAILY Simvastatin [Zocor] 40 mg PO DAILY Montelukast [Singulair] 10 mg PO HS L.acidoph,Paracasei, B.lactis [Probiotic] 1 each PO DAILY Carbidopa-Levodopa 25-100 mg [Sinemet 25-100 mg] 1 tab PO DAILY Discharge Medication List Cetirizine HCl [Zyrtec] 10 mg PO DAILY 12/14/14 [History] Enalapril/Hydrochlorothiazide [Vaseretic 5-12.5 mg] 1 each PO DAILY 12/14/14 [History] Levothyroxine Sodium [Synthroid] 75 mcg PO DAILY 12/14/14 [History] Montelukast [Singulair] 10 mg PO HS 12/14/14 [History] Simvastatin [Zocor] 40 mg PO DAILY 12/14/14 [History] L.acidoph,Paracasei, B.lactis [Probiotic] 1 each PO DAILY 01/19/18 [History] Carbidopa-Levodopa 25-100 mg [Sinemet 25-100 mg] 1 tab PO DAILY 04/09/18 [History] Aspirin 325 mg PO BID #60 tab 08/18/19 [Rx] HYDROcodone/APAP 5-325MG [[place] 5-325] 1 - 2 tab PO Q6HR PRN #56 tab 08/18/19 [Rx] Sennosides [Senokot] 1 tab PO BID #60 tablet 08/18/19 [Rx] Follow up Appointment(s)/Referral(s): Dedrick Hassan DO [Doctor of Osteopathic Medicine] - 09/01/19 2:00 pm Activity/Diet/Wound Care/Special Instructions: Weightbearing as tolerated with a walker. CPM 5-6h daily. Leave dressing intact. May be removed by home care nurse or by patient in 10 days. May shower with dressing on. Recommend use of compression stockings daily for at least 2 weeks during the day to help prevent swelling and blood clots. May remove at night before sleeping. Please follow up with [facility] and call with any questions or concerns, . Discharge Disposition: HOME WITH HOME HEALTH SERVICES
[2019-08-18 09:32] LABS: ALT 22 U/L (9-52); AST 20 U/L (14-36); African American GFR (CKD) >90 (>60 ml/min/1.73 sqM); Albumin 3.2 g/dL (3.5-5.0); Alkaline Phosphatase 58 U/L (38-126); Anion Gap 4 mmol/L; Blood Urea Nitrogen 16 mg/dL (7-17); Calcium 8.9 mg/dL (8.4-10.2); Carbon Dioxide 28 mmol/L (22-30); Chloride 106 mmol/L (98-107); Glucose 76 mg/dL (74-99); Potassium 4.2 mmol/L (3.5-5.1); Sodium 138 mmol/L (137-145); Total Bilirubin 0.4 mg/dL (0.2-1.3); Total Protein 5.1 g/dL (6.3-8.2)
[2019-08-18 09:34] LABS: Basophils % (A) 0 %; Eosinophils % (A) 0 %; HGB 10.7 gm/dL (11.4-16.0); Lymphocytes # (A) 1.4 k/uL (1.0-4.8); Lymphocytes % (A) 15 %; MCH 32.9 pg (25.0-35.0); MCHC 32.2 g/dL (31.0-37.0); MCV 102.2 fL (80.0-100.0); Macrocytosis Slight; Mean Platelet Volume 8.6; Monocytes # (A) 0.8 k/uL (0-1.0); Monocytes % (A) 9 %; Neutrophils # (A) 6.6 k/uL (1.3-7.7); Neutrophils % (A) 74 %; Platelet Count 161 k/uL (150-450); RBC 3.23 m/uL (3.80-5.40); RDW 13.8 % (11.5-15.5)
--- NOTE | 2019-08-18 11:59 | P.PN ---
Progress Note - Text Progress Note Date: 08/18/19 Patient was seen at bedside at 6:37 AM. Patient is postop day 1 from right total knee replacement with adductor canal catheter placed for pain . Ropivacaine 0.2% infusion running at 8 ml per hour. VAS score is 1. Patient denies side effects. Lower extremity sensation and motor function is intact. Patient has not yet ambulated. Dressing clean dry and intact over catheter site
--- NOTE | 2019-08-18 12:39 | P.CONS ---
History of Present Illness - History of Present Illness Patient sitting in chair at bedside patient has been discharge per orthopedics. Home medications refilled vital signs stable labs stable medically cleared for home discussed incentive spirometry Review of Systems Musculoskeletal: right: knee pain Past Medical History Past Medical History: Asthma, Hyperlipidemia, Hypertension, Osteoarthritis (OA), Thyroid Disorder Additional Past Medical History / Comment(s): varicose veins, IBS, "parkinson like symptoms" History of Any Multi-Drug Resistant Organisms: None Reported Past Surgical History: Breast Surgery, Hysterectomy, Tonsillectomy Additional Past Surgical History / Comment(s): left breast biopsy Past Anesthesia/Blood Transfusion Reactions: No Reported Reaction Past Psychological History: No Psychological Hx Reported Smoking Status: Never smoker Past Alcohol Use History: None Reported Past Drug Use History: None Reported - Past Family History Mother Family Medical History: No Reported History Medications and Allergies Home Medications Medication Instructions Recorded Confirmed Type Cetirizine HCl [Zyrtec] 10 mg PO DAILY 12/14/14 08/17/19 History Enalapril/Hydrochlorothiazide 1 each PO DAILY 12/14/14 08/17/19 History [Vaseretic 5-12.5 mg] Levothyroxine Sodium [Synthroid] 75 mcg PO DAILY 12/14/14 08/17/19 History Montelukast [Singulair] 10 mg PO HS 12/14/14 08/17/19 History Simvastatin [Zocor] 40 mg PO DAILY 12/14/14 08/17/19 History L.acidoph,Paracasei, B.lactis 1 each PO DAILY 01/19/18 08/17/19 History [Probiotic] Carbidopa-Levodopa 25-100 mg 1 tab PO DAILY 04/09/18 08/17/19 History [Sinemet 25-100 mg] Aspirin 325 mg PO BID #60 tab 08/18/19 Rx HYDROcodone/APAP 5-325MG [[place] 1 - 2 tab PO Q6HR PRN #56 tab 08/18/19 Rx 5-325] Sennosides [Senokot] 1 tab PO BID #60 tablet 08/18/19 Rx Allergies Allergy/AdvReac Type Severity Reaction Status Date / Time No Known Allergies Allergy Verified 08/12/19 10:32 Physical Exam Vitals: Vital Signs Temp Pulse Resp BP Pulse Ox 08/18/19 07:00 98.4 F 69 12 111/61 95 08/18/19 01:05 98.6 F 81 18 93/54 99 08/17/19 19:30 70 18 128/79 100 08/17/19 19:15 71 18 144/81 100 08/17/19 19:00 74 18 136/81 100 08/17/19 18:45 71 18 149/84 100 08/17/19 18:30 75 143/84 08/17/19 18:15 69 143/83 08/17/19 18:00 71 132/80 08/17/19 17:45 68 136/81 08/17/19 17:30 98.2 F 70 12 137/84 100 08/17/19 17:01 70 16 151/65 100 08/17/19 16:46 70 16 153/72 100 08/17/19 16:30 77 16 154/70 100 08/17/19 16:15 75 16 140/65 100 08/17/19 16:04 98 F 81 16 141/66 100 Intake and Output 08/17/19 08/18/19 08/18/19 22:59 06:59 14:59 Intake Total 480 Output Total 25 300 Balance 455 -300 Intake: Oral 480 Output: Urine 300 Estimated Blood Loss 25 Other: Voiding Method Toilet Toilet - Constitutional General appearance: mild distress - EENT Eyes: PERRLA Ears: bilateral: normal - Neck Neck: normal ROM - Respiratory Encouraged to cough and deep breathing Respiratory: bilateral: rhonchi - Cardiovascular Rhythm: regular - Gastrointestinal General gastrointestinal: soft - Integumentary Integumentary: normal - Neurologic Neurologic: CNII-XII intact - Psychiatric Psychiatric: A&O x's 3, appropriate affect, intact judgment & insight Results CBC & Chem 7: 08/18/19 08:07 08/18/19 08:53 Labs: Abnormal Lab Results - Last 24 Hours (Table) 08/18/19 08/18/19 Range/Units 08:07 08:53 RBC 3.23 L (3.80-5.40) m/uL Hgb 10.7 L (11.4-16.0) gm/dL Hct 33.0 L (34.0-46.0) % MCV 102.2 H (80.0-100.0) fL Total Protein 5.1 L (6.3-8.2) g/dL Albumin 3.2 L (3.5-5.0) g/dL Assessment and Plan Plan: Assessment osteoarthritis post right total knee arthroplasty History of hypothyroidism Hypertension Hyperlipidemia Parkinson's WPW History of depression Asthma Plan Patient's medically stable for discharge
== END 2019-08-18 12:39 | disposition home health service (06) ==
LOC: OR 11:43 → 4SSUR 16:04 → OR 08-18 12:39
PROVIDERS: ATTEND Orthopaedic Surgery
DX: M17.11 Unilateral primary osteoarthritis, right knee (principal); I10 Essential (primary) hypertension; I45.6 Pre-excitation syndrome; E78.2 Mixed hyperlipidemia; E07.9 Disorder of thyroid, unspecified; R63.4 Abnormal weight loss; Z68.24 Body mass index [BMI] 24.0-24.9, adult; H91.90 Unspecified hearing loss, unspecified ear; R26.81 Unsteadiness on feet; J45.909 Unspecified asthma, uncomplicated; I83.90 Asymptomatic varicose veins of unspecified lower extremity; K58.9 Irritable bowel syndrome, unspecified; Z85.3 Personal history of malignant neoplasm of breast; Z83.3 Family history of diabetes mellitus; G20 Parkinson's disease; Z97.2 Presence of dental prosthetic device (complete) (partial); Z90.710 Acquired absence of both cervix and uterus; Z79.1 Long term (current) use of non-steroidal anti-inflammatories (NSAID); Z79.890 Hormone replacement therapy; Z79.82 Long term (current) use of aspirin; Z79.899 Other long term (current) drug therapy
CPT/HCPCS: 97116; 97161; 64448; 76942; 80053; 85025; 73560; 27447; C1713; C1776; J2250; J0171; J1100; J0690 ×3; J2405; J2001; J3010; J1885; J2795 ×2; J0330; J2704; J0735; J1170; 88305; 88311

== ENCOUNTER → 2019-09-09 | Outpatient (CLI) | payer MEDICARE, BC ==
[2019-09-09 14:45] VITALS: BP 112/78; PULSE 72; RESP 16; TEMP 97.5; BMI 24.0
--- NOTE | 2019-09-09 14:46 | P.PN ---
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 the patient was seen by medical and radiation oncology in follow up and was told that she was not recommended for any further treatment. She has no complaints. She had a bilateral mammogram in [id number]. The right breast did not show any lesions of concern in the left there were noted to be postlumpectomy changes and repeat left breast mammogram in 6 months time was recommended. She does not report any lumps or masses in her breast at this time. She is not complaining of any pain in her breast. She is not complaining of any nipple discharge or skin changes. The date of the lumpectomy was 01-20-18. The lesion was 1.8 cm, this was ER/CA+. - Constitutional Constitutional: Denies chills, Denies fever - EENT Eyes: denies pain, denies loss of vision Ears: deny: decreased hearing, earache, tinnitus Ears, nose, mouth and throat: Denies headache, Denies sore throat - Breasts Comment: pre cancer left breast Breasts: bilateral: as per HPI - Cardiovascular Cardiovascular: Denies chest pain, Denies shortness of breath - Respiratory Respiratory: Denies cough, Denies 7 - Gastrointestinal Gastrointestinal: Denies abdominal pain, Denies diarrhea, Denies nausea, Denies vomiting - Genitourinary (Female) Genitourinary: Denies dysuria, Denies hematuria - Menstruation Menstruation: Reports postmenopausal - Musculoskeletal Comment: arthritis - Integumentary Integumentary: Denies pruritus, Denies rash - Neurological Neurological: Denies numbness, Denies weakness - Psychiatric Psychiatric: Reports depression - Endocrine Endocrine: Denies fatigue, Denies weight change - Hematologic/Lymphatic Comment: none - Allergic/Immunologic Comment: none Objective - Vital Signs Vital signs: Intake & Output 09/08/19 09/09/19 09/09/19 18:59 06:59 18:59 Weight 55.792 kg - Exam BMI 24 - Constitutional General appearance: Present: average body habitus - EENT Eyes: Present: EOMI ENT: Present: hearing grossly normal - Neck Neck: Present: normal ROM - Respiratory Respiratory: bilateral: CTA - Cardiovascular Rhythm: regular Heart sounds: normal: S1, S2 - Gastrointestinal Gastrointestinal Comment(s): no guarding or rebound bowel sounds normal General gastrointestinal: Present: soft - Integumentary Integumentary: Present: normal turgor - Musculoskeletal Musculoskeletal: Present: gait normal - Psychiatric Psychiatric: Present: A&O x's 3, appropriate affect, intact judgment & insight - Additional findings Additional findings: breast exam: bra ? size , ? 40 D, has not worn her bra for many years grade 3 ptosis right breast: Multi-positional exam no dominant masses or nodules of concern, fibrocystic changes Right axilla: No adenopathy of concern Left breast: Multi-positional exam no dominant masses or nodules of concern, well-healed scar from prior lumpectomy Left axilla: No adenopathy of concern Assessment and Plan Assessment: Impression: 1. Status post left breast lumpectomy 01-20-18 for DCIS no evidence of recurrent cancer 2. Patient is not on an antiestrogen 3. Patient did not receive radiation therapy 4. Recent bilateral mammogram 07-15-19 recommend repeat left breast mammogram in 6 months 5. recent right knee replacement, about three weeks ago Plan: 1. repeat left breast mammogram in december of 2019 2. appt. in December 2019 3. medical management of medical conditions We discussed surveillance for the DCIS. We have discussed at this time that there is no evidence of any recurrent cancer. The patient will call if she has any concerns. Otherwise she will be seen in December 2019 with a repeat left breast mammogram and physical exam. CC: DR. Kiran Keller Time with Patient: Greater than 30
== END | disposition home or self-care (01) ==
LOC: WWCWWP 13:58
PROVIDERS: ATTEND Surgery
DX: Z53.9 Procedure and treatment not carried out, unspecified reason (principal)

== ENCOUNTER → 2019-11-01 | Outpatient (CLI) | payer MEDICARE ==
--- NOTE | 2019-11-01 13:16 | BD ---
EXAMINATION TYPE: Axial Bone Density DATE OF EXAM: 11/01/2019 COMPARISON: 11.25.2016 CLINICAL HISTORY: Z 78.0 Height: 60.5 Weight: 123.9 FRAX RISK QUESTIONS: Alcohol (3 or more units per day): NO Family History (Parent hip fracture): no Glucocorticoids (More than 3mos): no (Ex: prednisone, prednisolone, methylprednisolone, dexamethasone, and hydrocortisone). History of Fracture in Adulthood: yes Secondary Osteoporosis: 1. Type 1 Diabetes: no 2. Hyperthyroidism: no 3. Menopause before 45: no 4. Malnutrition: no 5. Chronic liver disease: no Rheumatoid Arthritis: no Current Tobacco Use: no RISK FACTORS HISTORY OF: History of Wrist Fracture: yes unsure which one When: as a child Surgery to Spine/Hip(right/left)/Wrist (right/left): no Family History of Osteoporosis: no Active: no Diet low in dairy products/other sources of calcium: yes Postmenopausal woman: unsure Lost more than 2 inches in height since high school: no MEDICATIONS: levothyroxine 23 years cholesterol meds, blood pressure meds, parkinson's meds Additional History: EXAM MEASUREMENTS: Bone mineral densitometry was performed using the [employer] System. Bone mineral density as measured about the Lumbar spine is: ----- L1-L4(G/cm2): 0.965 T Score Values are as follows: ----- L2: -2.4 ----- L3: -1.1 ----- L4: -0.8 ----- L1-L4: -1.8 Bone mineral density has: increased 5.6 % since study of: 11.25.2016 Bone mineral density about the R hip (g/cm2): 0.703 Bone mineral density about the L hip (g/cm2): 0.713 T Score values are as follows: -----R Neck: -2.4 -----L Neck: -2.3 -----R Total: -1.8 -----L Total: -2.4 Bone mineral density has: decreased -9.4 % since study of: 11.25.2016 IMPRESSION: Osteopenia (T Score between -2.5 and -1). There is slightly increased risk of fracture and the patient may be considered for treatment. Re-Screen 2-5 years. NOTE: T-SCORE=SD OF THE YOUNG ADULT MEAN.
== END | disposition home or self-care (01) ==
LOC: RADBDWWP 12:29
PROVIDERS: ATTEND Family Medicine
DX: M85.89 Other specified disorders of bone density and structure, multiple sites (principal); Z78.0 Asymptomatic menopausal state
CPT/HCPCS: 77080

== ENCOUNTER → 2020-01-13 | Outpatient (CLI) | payer MEDICARE, BC ==
--- NOTE | 2020-02-09 06:55 | MM ---
Reason for exam: follow-up at short interval from prior study. Last mammogram was performed 6 months ago. History: Patient is postmenopausal, has history of breast cancer at age 77, and is nulliparous. Malignant MG pre op needle loc LT of the left breast, January 20, 2018. Lumpectomy of the left breast, January 20, 2018. Malignant MG stereo VAD BX LT of the left breast, January 02, 2018. Stereotactic core biopsy of the left breast, January 02, 2018. Physical Findings: Nurse did not find any significant physical abnormalities on exam. MG 3D Diag Mammo W/Cad LT CC and MLO view(s) were taken of the left breast. Prior study comparison: July 15, 2019, bilateral MG 3d diag mammo wo cad BLAY[facility]. January 02, 2018, left breast mammogram, performed at [facility]. The breast tissue is heterogeneously dense. This may lower the sensitivity of mammography. Finding: There are clips and architectural distortion in the upper outer quadrant, middle position of the left breast. There is no discrete abnormality. These results were verbally communicated with the patient and result sheet given to the patient on 01/13/20. ASSESSMENT: Benign, BI-RAD 2 RECOMMENDATION: Follow-up diagnostic mammogram of both breasts in 6 months. Back on schedule.
== END | disposition home or self-care (01) ==
LOC: RADMAMWWP 09:30
PROVIDERS: ATTEND Surgery
DX: R92.8 Other abnormal and inconclusive findings on diagnostic imaging of breast (principal)
CPT/HCPCS: 77065; G0279; 77061

== ENCOUNTER → 2020-08-15 | Outpatient (CLI) | payer MEDICARE, BC ==
[~2020-08-15] MED LIST changes: -ACETAMINOPHEN TAB 500 MG TAB PO ONE; +DENOSUMAB 60 MG/ML 1 ML SYRINGE SQ NR; -DEXAMETHASONE SOD PHOSPHATE 10 MG/ML 1 ML VIAL IV ONE; -GABAPENTIN 300 MG CAP PO ONE; -LIDOCAINE 1% 20 ML VIAL (10MG/ML) FOR IV START INTRADERMA PRN; -MELOXICAM 7.5 MG TAB PO ONE; -ONDANSETRON 4 MG/2 ML VIAL IVP ONE; -ROPIVACAINE 246.25 MG, EPINEPHrine 0.5 MG, KETOROLAC 30 MG, cloNIDine HCL/PF 80 MCG, WA... MISCELLANE ONE; -TRANEXAMIC ACID 1,000 MG in SODIUM CHLORIDE 0.9% 100 ML IVPB ONE; -fentaNYL (PF) 50 MCG/ML 2 ML AMP IV PRN
[2020-08-15 13:55] VITALS: BP 124/80; PULSE 62; RESP 16; TEMP 97.9
== END | disposition home or self-care (01) ==
LOC: PROCWHC3 13:28
PROVIDERS: ATTEND Family Medicine
DX: M81.0 Age-related osteoporosis without current pathological fracture (principal)
CPT/HCPCS: 96372; J0897

== ENCOUNTER → 2020-09-08 | Outpatient (CLI) | payer MEDICARE, BC ==
--- NOTE | 2020-09-08 14:13 | MM ---
Reason for exam: additional evaluation requested from prior study. Last mammogram was performed 8 months ago. History: Patient is postmenopausal, has history of breast cancer at age 77, and is nulliparous. Malignant MG pre op needle loc LT of the left breast, January 20, 2018. Lumpectomy of the left breast, January 20, 2018. Malignant MG stereo VAD BX LT of the left breast, January 02, 2018. Stereotactic core biopsy of the left breast, January 02, 2018. Physical Findings: Nurse did not find any significant physical abnormalities on exam. MG Diagnostic Mammo w CAD BLAYNE Bilateral CC, MLO, and XCCL view(s) were taken. Prior study comparison: January 13, 2020, left breast MG 3d diag mammo w/cad LT. July 15, 2019, bilateral MG 3d diag mammo wo cad BLAYNE. The breast tissue is heterogeneously dense. This may lower the sensitivity of mammography. Post surgical and post therapy change left breast. Stable fat necrosis calcifications. Stable few scattered punctate calcifications right superior MLO view. These results were verbally communicated with the patient and result sheet given to the patient on 09/08/20. ASSESSMENT: Benign, BI-RAD 2 RECOMMENDATION: Follow-up diagnostic mammogram of both breasts in 1 year.
== END | disposition home or self-care (01) ==
LOC: RADMAMWWP 13:02
PROVIDERS: ATTEND Family Medicine
DX: R92.8 Other abnormal and inconclusive findings on diagnostic imaging of breast (principal)
CPT/HCPCS: 77066

== ENCOUNTER → 2021-04-11 | Outpatient (CLI) | payer MEDICARE ==
[2021-04-11 22:31] LABS: Hemoglobin A1C 4.7 % (4.0-6.0)
[2021-04-11 23:43] LABS: Protein, Total 5.9 g/dL (6.2-8.2)
[2021-04-11 23:45] LABS: Creatine Kinase 114 U/L (26-186)
[2021-04-13 13:44] LABS: Albumin 3.99 g/dL (3.80-4.90); Gamma Globulin 0.31 g/dL (0.70-1.50)
== END | disposition home or self-care (01) ==
LOC: LABWHC1 12:51
PROVIDERS: ATTEND Psychiatry & Neurology Neurology
DX: D56.5 Hemoglobin E-beta thalassemia (principal); G62.9 Polyneuropathy, unspecified; R53.1 Weakness; R26.89 Other abnormalities of gait and mobility; W19.XXXA Unspecified fall, initial encounter
CPT/HCPCS: 36415; 82550; 82607; 82747; 83036; 84165; 84439; 84443; 85652; 86038; 86618

== ENCOUNTER 2021-11-07 12:33 | Inpatient (IN) | payer MEDICARE ==
[2021-11-07 13:22] LABS: Basophils % (A) 0 %; Eosinophils # (A) 0.1 k/uL (0-0.7); Eosinophils % (A) 1 %; HGB 12.4 gm/dL (11.4-16.0); Lymphocytes # (A) 0.9 k/uL (1.0-4.8); Lymphocytes % (A) 9 %; MCH 34.2 pg (25.0-35.0); MCHC 32.7 g/dL (31.0-37.0); MCV 104.4 fL (80.0-100.0); Macrocytosis Slight; Mean Platelet Volume 10.2; Monocytes # (A) 1.1 k/uL (0-1.0); Monocytes % (A) 10 %; Neutrophils # (A) 8.4 k/uL (1.3-7.7); Neutrophils % (A) 79 %; Platelet Count 225 k/uL (150-450); RBC 3.64 m/uL (3.80-5.40); WBC 10.6 k/uL (3.8-10.6)
--- NOTE | 2021-11-07 13:32 | XR ---
EXAMINATION TYPE: XR chest 2V DATE OF EXAM: 11/07/2021 COMPARISON: 07/23/2013 TECHNIQUE: PA and lateral views submitted. HISTORY: Syncope FINDINGS: The lungs are clear and there is no pneumothorax, pleural effusion, or focal pneumonia. Hyperinflati on suggests COPD. There is prominence of the right hilum. There appears to be a fracture of the right humerus is been reported prior exam of 11/04/2021. No pneumothorax or interstitial edema. Underlying C OPD suspected. Degenerative changes of the spine. IMPRESSION: 1. COPD. Prominence the right hilum could be followed on a short-term outpatient CT of the chest as c linically warranted. 2. Recent right humeral fracture again noted and stable from prior x-ray.
--- NOTE | 2021-11-07 13:38 | CT ---
EXAMINATION TYPE: CT brain wo con DATE OF EXAM: 11/07/2021 COMPARISON: 11/04/2021 HISTORY: Syncope CT DLP: 1099.4 mGycm Automated exposure control for dose reduction was used. 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 Mild generalized degenerative change. No mid line shift or acute hemorrhage. There is an extra-axial nodule along the superior right parietal cere bral convexity measuring 8 mm stable from prior exam compatible with a meningioma. Craniocervical junction maintained. There is a normal appearance of the pituitary gland. Intracranial atherosclerotic changes. Faint nonspecific. Faint nonspecific white matter changes noted. IMPRESSION: 1. DEGENERATIVE CHANGE WITH NO ACUTE HEMORRHAGE OR MASS EFFECT. NONSPECIFIC WHITE MATTER CHANGES MOST TYPICAL OF REMOTE ISCHEMIA.. 2. 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 STABLE MARKED PROMINENCE OF THE VERTEBRAL BASILAR SYSTEM MOST NOTED WITHIN THE LEFT VERTEBRAL SAMMI RY COMPATIBLE WITH DOLICHOECTASIA.
[2021-11-07] MEDS ORDERED: SODIUM CHLORIDE 0.9% 500 ML 500 ML IV ONE (13:58)
[2021-11-07 13:59] LABS: ALT 6 U/L (4-34); AST 25 U/L (14-36); African American GFR (CKD) >90 (>60 ml/min/1.73 sqM); Alkaline Phosphatase 86 U/L (38-126); Anion Gap 7 mmol/L; Blood Urea Nitrogen 22 mg/dL (7-17); Calcium 9.5 mg/dL (8.4-10.2); Carbon Dioxide 29 mmol/L (22-30); Chloride 99 mmol/L (98-107); Glucose 114 mg/dL (74-99); Non-African American GFR(CKD) 80 (>60 ml/min/1.73 sqM); Sodium 135 mmol/L (137-145); Total Bilirubin 1.1 mg/dL (0.2-1.3); Total Protein 6.2 g/dL (6.3-8.2)
--- NOTE | 2021-11-07 14:00 | ED ---
General Adult HPI - General Chief complaint: Syncope Stated complaint: Syncope Time Seen by Provider: 11/07/21 13:44 Source: patient, family, RN notes reviewed, old records reviewed Mode of arrival: wheelchair Limitations: no limitations - History of Present Illness Initial comments: 81-year-old female presenting for repeat evaluation. Patient had 2 episodes today where she lost consciousness and fell. There was minor head injury. Patient's stating that she didn't pass out before she fell. This is happened twice today and she was admitted with [facility] yesterday. She has not been eating or drinking well no chest pain. No palpitations. No abdominal pain nausea vomiting. - Related Data Home Medications Medication Instructions Recorded Confirmed Cetirizine HCl [Zyrtec] 10 mg PO DAILY 12/14/14 11/07/21 Enalapril/Hydrochlorothiazide 1 tab PO DAILY 12/14/14 11/07/21 [Vaseretic 5-12.5 mg] Levothyroxine Sodium [Synthroid] 75 mcg PO DAILY 12/14/14 11/07/21 Montelukast [Singulair] 10 mg PO HS 12/14/14 11/07/21 Simvastatin [Zocor] 40 mg PO HS 12/14/14 11/07/21 Carbidopa-Levodopa ER 50-200Mg 1 tab PO TID@0900,1200,1600 11/04/21 11/07/21 [Sinemet CR 50-200 mg] L.acidoph,Paracasei, B.lactis 1 cap PO BID 11/04/21 11/07/21 [Probiotic] Multivitamins, Thera [Multivitamin 1 tab PO DAILY@1200 11/07/21 11/07/21 (formulary)] Previous Rx's Medication Instructions Recorded Acetaminophen Tab [Tylenol] 650 mg PO Q6HR PRN #30 tab 11/06/21 Docusate [Colace] 100 mg PO DAILY #30 capsule 11/06/21 Folic Acid 1 mg PO DAILY@1200 30 Days #30 tab 11/06/21 Thiamine [Vitamin B-1] 100 mg PO DAILY@1200 #30 tab 11/06/21 traMADol HCl [Ultram] 50 mg PO Q6HR PRN #24 tab 11/06/21 Allergies Allergy/AdvReac Type Severity Reaction Status Date / Time No Known Allergies Allergy Verified 11/07/21 15:05 Review of Systems ROS Statement: Those systems with pertinent positive or pertinent negative responses have been documented in the HPI. ROS Other: All systems not noted in ROS Statement are negative. Past Medical History Past Medical History: Asthma, Hyperlipidemia, Hypertension, Thyroid Disorder Additional Past Medical History / Comment(s): OSTEOPOROSIS,varicose veins, IBS. History of Any Multi-Drug Resistant Organisms: None Reported Past Surgical History: Breast Surgery, Hysterectomy, Tonsillectomy Additional Past Surgical History / Comment(s): left breast biopsy Past Anesthesia/Blood Transfusion Reactions: No Reported Reaction Past Psychological History: Anxiety Smoking Status: Never smoker - Past Family History Mother Family Medical History: No Reported History General Exam Limitations: no limitations General appearance: alert, in no apparent distress Head exam: Present: atraumatic, normocephalic Eye exam: Present: normal appearance, PERRL ENT exam: Present: mucous membranes dry Neck exam: Present: normal inspection. Absent: tenderness, meningismus Respiratory exam: Present: normal lung sounds bilaterally. Absent: respiratory distress, wheezes Cardiovascular Exam: Present: regular rate, normal rhythm GI/Abdominal exam: Present: soft. Absent: distended, tenderness, guarding Extremities exam: Present: other (Tenderness over the right shoulder, distal pulses intact.) Neurological exam: Present: alert, oriented X3, CN II-XII intact. Absent: motor sensory deficit Psychiatric exam: Present: normal affect, normal mood Skin exam: Present: warm, dry, intact. Absent: cyanosis, diaphoretic Course Vital Signs 11/07/21 12:40 Temperature 98 F Pulse Rate 85 Respiratory 18 Rate Blood Pressure 107/74 O2 Sat by Pulse 97 Oximetry EKG Findings - EKG Comments: EKG Findings:: Normal sinus rhythm, left axis rate of 88, AL interval 120, QRS duration 106, QTC [address] segment elevation. Medical Decision Making - Medical Decision Making 81-year-old female presenting for reevaluation. Patient has had multiple falls, she did have 2 episodes of syncope. She was admitted and discharged after fall resulting in right humerus fracture. She was discharged yesterday and has fallen twice today, she lost consciousness both times according to her . Head CT is performed which is negative for scleral hemorrhage or mass effect. She has a chest x-ray showing COPD, possible right hilar abnormality. Patient has relatively normal lab testing. Urinalysis is pending. She may require placement, rehabilitation. I did admit to internal medicine with physical therapy on consult. Case discussed with EM. - Lab Data Result diagrams: 11/07/21 13:03 11/07/21 13:03 Lab Results 11/07/21 11/07/21 11/07/21 Range/Units 13:03 13:03 13:03 WBC 10.6 (3.8-10.6) k/uL RBC 3.64 L (3.80-5.40) m/uL Hgb 12.4 (11.4-16.0) gm/dL Hct 38.0 (34.0-46.0) % MCV 104.4 H (80.0-100.0) fL MCH 34.2 (25.0-35.0) pg MCHC 32.7 (31.0-37.0) g/dL RDW 14.0 (11.5-15.5) % Plt Count 225 (150-450) k/uL MPV 10.2 Neutrophils % 79 % Lymphocytes % 9 % Monocytes % 10 % Eosinophils % 1 % Basophils % 0 % Neutrophils # 8.4 H (1.3-7.7) k/uL Lymphocytes # 0.9 L (1.0-4.8) k/uL Monocytes # 1.1 H (0-1.0) k/uL Eosinophils # 0.1 (0-0.7) k/uL Basophils # 0.0 (0-0.2) k/uL Macrocytosis Slight PT 9.5 (9.0-12.0) sec INR 0.9 (<1.2) APTT 22.3 (22.0-30.0) sec Sodium 135 L (137-145) mmol/L Potassium 4.0 (3.5-5.1) mmol/L Chloride 99 (98-107) mmol/L Carbon Dioxide 29 (22-30) mmol/L Anion Gap 7 mmol/L BUN 22 H (7-17) mg/dL Creatinine 0.70 (0.52-1.04) mg/dL Est GFR (CKD-EPI)AfAm >90 (>60 ml/min/1.73 sqM) Est GFR (CKD-EPI)NonAf 80 (>60 ml/min/1.73 sqM) Glucose 114 H (74-99) mg/dL Calcium 9.5 (8.4-10.2) mg/dL Total Bilirubin 1.1 (0.2-1.3) mg/dL AST 25 (14-36) U/L ALT 6 (4-34) U/L Alkaline Phosphatase 86 (38-126) U/L Troponin I (0.000-0.034) ng/mL Total Protein 6.2 L (6.3-8.2) g/dL Albumin 4.0 (3.5-5.0) g/dL 11/07/21 Range/Units 13:03 WBC (3.8-10.6) k/uL RBC (3.80-5.40) m/uL Hgb (11.4-16.0) gm/dL Hct (34.0-46.0) % MCV (80.0-100.0) fL MCH (25.0-35.0) pg MCHC (31.0-37.0) g/dL RDW (11.5-15.5) % Plt Count (150-450) k/uL MPV Neutrophils % % Lymphocytes % % Monocytes % % Eosinophils % % Basophils % % Neutrophils # (1.3-7.7) k/uL Lymphocytes # (1.0-4.8) k/uL Monocytes # (0-1.0) k/uL Eosinophils # (0-0.7) k/uL Basophils # (0-0.2) k/uL Macrocytosis PT (9.0-12.0) sec INR (<1.2) APTT (22.0-30.0) sec Sodium (137-145) mmol/L Potassium (3.5-5.1) mmol/L Chloride (98-107) mmol/L Carbon Dioxide (22-30) mmol/L Anion Gap mmol/L BUN (7-17) mg/dL Creatinine (0.52-1.04) mg/dL Est GFR (CKD-EPI)AfAm (>60 ml/min/1.73 sqM) Est GFR (CKD-EPI)NonAf (>60 ml/min/1.73 sqM) Glucose (74-99) mg/dL Calcium (8.4-10.2) mg/dL Total Bilirubin (0.2-1.3) mg/dL AST (14-36) U/L ALT (4-34) U/L Alkaline Phosphatase (38-126) U/L Troponin I <0.012 (0.000-0.034) ng/mL Total Protein (6.3-8.2) g/dL Albumin (3.5-5.0) g/dL Disposition Clinical Impression: Gait instability, Multiple falls Disposition: ADMITTED IP TO THIS [facility] Condition: Stable Is patient prescribed a controlled substance at d/c from ED?: No Referrals: Kiran Keller MD [Primary Care Provider] - 1-2 days Decision to Admit Reason: Admit from EC Decision Date: 11/07/21 Decision Time: 15:22
[2021-11-07 14:15] LABS: INR 0.9 (<1.2); Partial Thromboplastin Time 22.3 sec (22.0-30.0); Prothrombin Time 9.5 sec (9.0-12.0)
[2021-11-07] MEDS ORDERED: ACETAMINOPHEN TAB 325 MG TAB PO PRN (15:20)
[2021-11-07] MEDS ORDERED: NALOXONE 0.4 MG/ML 1 ML VIAL IV PRN (15:20)
[2021-11-07] MEDS ORDERED: HYDROmorphone 0.5 MG/0.5 ML SYRINGE IVP PRN (15:20)
[2021-11-07] MEDS: 0.9% NACL WITH KCL 20 MEQ/L 1,000 ML IV SCH (17:46)
--- NOTE | 2021-11-07 17:50 | HP ---
HISTORY AND PHYSICAL DATE OF SERVICE: 11/07/2021 CHIEF COMPLAINTS: Weakness and multiple falls and presyncope. HISTORY OF PRESENT ILLNESS: This 81-year-old woman with a past medical history of multiple medical problems, including hypertension, hyperlipidemia, osteoporosis, irritable bowel syndrome, history of asthma, being followed by Dr. Kiran Keller in the outpatient setting, was admitted with a proximal right humerus fracture recently. The patient apparently slipped and fell in the bathroom, lost her balance, and the patient was treated conservatively. The patient went home and currently the patient had at least 2 falls and the patient also had presyncopal events, and the patient was taken back to [facility] and was admitted for further evaluation and treatment. There is no history of any fever, rigors or chills. No history of headache, loss of consciousness, seizures at this time. PAST MEDICAL HISTORY: History of asthma, hypertension, hyperlipidemia, hypothyroidism, osteoporosis. MEDICATIONS: Zocor, multivitamins, Singulair, folic acid, carbidopa L-dopa, Tylenol, Ultram, vitamin B1, Synthroid, probiotic, Vaseretic, Colace, zyrtec. Doses are reviewed. ALLERGIES: NONE. FAMILY HISTORY: No history of heart disease or strokes in the family. SOCIAL HISTORY: No history of smoking. No history of alcohol intake. REVIEW OF SYSTEMS: ENT: Diminished hearing. Diminished vision. CARDIOVASCULAR SYSTEM: No angina, palpitations. RESPIRATORY SYSTEM: As mentioned earlier. GI: As mentioned earlier. : No dysuria. NERVOUS SYSTEM: As mentioned earlier. ALLERGY/IMMUNOLOGY: No asthma or hay fever. MUSCULOSKELETAL: As mentioned earlier. HEMATOLOGY/ONCOLOGY: No history of anemia. ENDOCRINE: No history of diabetes or hypothyroidism. CONSTITUTIONAL: As mentioned earlier. DERMATOLOGY: Negative. RHEUMATOLOGY: Negative. PSYCHIATRY: As mentioned earlier. PHYSICAL EXAMINATION: Patient alert and oriented x3. Pulse 85, blood pressure 100/74, respiration 18, temperature 98 degrees, pulse ox 97% on room air. HEENT: Conjunctivae normal. NECK: No jugular venous distention. CARDIOVASCULAR: S1, S2 muffled. RESPIRATION: Breath sounds diminished at the bases. No rhonchi. No crackles. ABDOMEN: Soft, nontender. LEGS: Minimal edema NERVOUS SYSTEM: No focal deficit. EXAMINATION OF RIGHT HAND: Status post fracture. SKIN: No ulcer, rash, bleeding. JOINTS: No active deforming arthropathy. LABS: WBC 7.7, hemoglobin 12.4, and sodium is 135. ASSESSMENT: 1. Multiple falls and gait dysfunction. 2. Syncope and presyncope for evaluation. 3. Hyponatremia. 4. Possible dehydration, present on admission. 5. Increased mean corpuscular volume. 6. History of recent right humerus fracture. 7. Asthma. 8. Hypertension. 9. Hyperlipidemia. 10.Hypothyroidism. 11.History of osteoporosis. 12.History of varicose veins. 13.History of irritable bowel syndrome. 14.History of Parkinson's disease. 15.History of breast surgery. 16.History of hysterectomy. 17.History of anxiety. 18.Mild protein-calorie malnutrition with body mass index of 21.4. 19.FULL CODE. RECOMMENDATIONS AND DISCUSSION: In this 81-year-old woman who presented with multiple complex medical issues, we will monitor the patient closely, continue the current medications. Continue symptomatic treatment. Will treat with gentle IV fluids and PT/OT evaluation, orthostatic vitals. Follow up with orthopedic evaluation. The patient has multiple complex medical issues at this time; it seems like the patient has poor social support at home with an elderly . The patient would need ECF rehab because of the high risk of falls, as mentioned earlier. Once again, the prognosis is guarded. I would also recommend a 2D echo and carotid Doppler to complete workup. See orders for further details. Prognosis guarded. Further recommendations to follow. A copy of this dictation is being forwarded to Dr. Kiran Keller, who is the primary physician. YOGESH / ZEUS: [id number] / MTDD
[2021-11-07 18:07] LABS: Appearance,Urine Clear (Clear); Bacteria,Urine Rare /hpf; Bilirubin,Urine Negative (Negative); Blood,Urine Negative (Negative); Color,Urine Yellow; Glucose,Urine (UA) Negative (Negative); Hyaline Casts,Urine 5 /lpf (0-2); Ketones,Urine Negative (Negative); Leukocyte Esterase,Urine Negative (Negative); Mucus,Urine Occasional /hpf; Nitrite,Urine Negative (Negative); PH, Urine 6.5 (5.0-8.0); Protein,Urine 1+ (Negative); RBC,Urine <1 /hpf (0-5); Specific Gravity,Urine 1.014 (1.001-1.035); Squamous Epithelial Cell,Urine <1 /hpf (0-4); Urobilinogen,Urine <2.0 mg/dL (<2.0); WBC,Urine 2 /hpf (0-5)
[2021-11-07] MEDS: ATORVASTATIN 20 MG TAB PO SCH (20:47)
[2021-11-07] MEDS: MONTELUKAST 10 MG TAB PO SCH (20:47)
[2021-11-07] MEDS: LACTOBACILLUS ACIDOPH & BULGAR 1 EACH PACKET PO SCH (20:47)
[2021-11-08 00:09] LABS: Glucose,Whole Blood 100 mg/dL (75-99)
[2021-11-08] MEDS ORDERED: DILTIAZEM DRIP BOLUS FROM BAG 1 MG SOLN IV ONE (00:20)
[2021-11-08] MEDS ORDERED: DILTIAZEM 125 MG in SODIUM CHLORIDE 0.9% 100 ML IV SCH (00:30)
[2021-11-08] MEDS: LEVOTHYROXINE 75 MCG TAB PO SCH (05:29)
--- NOTE | 2021-11-08 06:46 | P.EN ---
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
[2021-11-08] MEDS: DOCUSATE 100 MG CAP PO SCH (08:30)
[2021-11-08] MEDS: traMADol 50 MG TAB PO PRN ×2 (08:30→16:55)
[2021-11-08] MEDS: CARBIDOPA-LEVODOPA ER 50-200MG 1 EACH TABLET.ER PO SCH ×3 (08:31→16:56)
[2021-11-08] MEDS: DILTIAZEM ORAL 60 MG TAB PO SCH ×3 (10:13→20:17)
[2021-11-08 11:03] LABS: HCT 35.9 % (37.2-46.3); HGB 11.4 g/dL (12.0-15.0); MCH 33.8 pg (27.0-32.0); MCHC 31.8 g/dL (32.0-37.0); MCV 106.5 fL (80.0-97.0); Mean Platelet Volume 12.4 fL (9.5-12.2); Platelet Count 180 X 10*3/uL (140-440); RBC 3.37 X 10*6/uL (4.10-5.20); RDW 14.5 % (11.5-14.5); WBC 9.67 X 10*3/uL (4.50-10.00)
[2021-11-08] MEDS: LACTOBACILLUS ACIDOPH & BULGAR 1 EACH PACKET PO SCH ×2 (11:08→21:06)
[2021-11-08] MEDS: 0.9% NACL WITH KCL 20 MEQ/L 1,000 ML IV SCH (11:10)
[2021-11-08 11:21] LABS: African American GFR (CKD) 101.5 (60.0-200.0); Albumin 3.7 g/dL (3.8-4.9); Albumin/Globulin Ratio 2.37 (1.60-3.17); Anion Gap 11.7 mmol/L (10.00-18.00); BUN/Creat Ratio 24.91 Ratio (12.00-20.00); Blood Urea Nitrogen 13.3 mg/dL (9.0-27.0); Calcium 8.7 mg/dL (8.7-10.3); Carbon Dioxide 24.6 mmol/L (20.0-27.5); Globulin 1.6 g/dL (1.6-3.3); Non-African American GFR(CKD) 87.6 (60.0-200.0); Potassium 3.6 mmol/L (3.5-5.5); Total Bilirubin 0.5 mg/dL (0.30-1.20); Total Protein 5.3 g/dL (6.2-8.2)
--- NOTE | 2021-11-08 11:35 | P.CRDCN ---
History of Present Illness Consult date: 11/08/21 History of present illness: This is a 81-year-old female who was recently admitted to the hospital with a fall and fracture of the humerus. Patient was advised conservative management by orthopedics. She was advised to go to have a rehab center but apparently the family wanted to take her home. She was brought back again with 2 falls at home and possible syncope. While she was on the floor last night patient developed SVT with heart rates of 200. 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 However her SVT was a narrow complex. Patient was given IV Cardizem and patient remained in sinus rhythm. Today patient claims this is having a lot of pain in the shoulder. Otherwise, she seemed to be alert, somewhat oriented. Patient is switching from IV Cardizem to by mouth Cardizem. I discussed with the Dr. Roque. Because of recurrent falls and syncope and evidence of SVT associated with the WPW. She may need EP evaluation. Patient is going to be seen by Dr. Roque today. Review of Systems As per the chart Past Medical History Past Medical History: Asthma, Hyperlipidemia, Hypertension, Thyroid Disorder Additional Past Medical History / Comment(s): OSTEOPOROSIS,varicose veins, IBS. History of Any Multi-Drug Resistant Organisms: None Reported Past Surgical History: Breast Surgery, Hysterectomy, Tonsillectomy Additional Past Surgical History / Comment(s): left breast biopsy Past Anesthesia/Blood Transfusion Reactions: No Reported Reaction Past Psychological History: Anxiety Smoking Status: Never smoker Past Alcohol Use History: None Reported Past Drug Use History: None Reported - Past Family History Mother Family Medical History: No Reported History Medications and Allergies Home Medications Medication Instructions Recorded Confirmed Type Cetirizine HCl [Zyrtec] 10 mg PO DAILY 12/14/14 11/07/21 History Enalapril/Hydrochlorothiazide 1 tab PO DAILY 12/14/14 11/07/21 History [Vaseretic 5-12.5 mg] Levothyroxine Sodium [Synthroid] 75 mcg PO DAILY 12/14/14 11/07/21 History Montelukast [Singulair] 10 mg PO HS 12/14/14 11/07/21 History Simvastatin [Zocor] 40 mg PO HS 12/14/14 11/07/21 History Carbidopa-Levodopa ER 50-200Mg 1 tab PO TID@0900,1200,1600 11/04/21 11/07/21 History [Sinemet CR 50-200 mg] L.acidoph,Paracasei, B.lactis 1 cap PO BID 11/04/21 11/07/21 History [Probiotic] Acetaminophen Tab [Tylenol] 650 mg PO Q6HR PRN #30 tab 11/06/21 11/07/21 Rx Docusate [Colace] 100 mg PO DAILY #30 capsule 11/06/21 11/07/21 Rx Folic Acid 1 mg PO DAILY@1200 30 Days #30 tab 11/06/21 11/07/21 Rx Thiamine [Vitamin B-1] 100 mg PO DAILY@1200 #30 tab 11/06/21 11/07/21 Rx traMADol HCl [Ultram] 50 mg PO Q6HR PRN #24 tab 11/06/21 11/07/21 Rx Multivitamins, Thera [Multivitamin 1 tab PO DAILY@1200 11/07/21 11/07/21 History (formulary)] Allergies Allergy/AdvReac Type Severity Reaction Status Date / Time No Known Allergies Allergy Verified 11/07/21 15:05 Physical Exam Vitals: Vital Signs Temp Pulse Pulse Resp BP BP Pulse Ox 11/08/21 08:00 90 16 11/08/21 07:00 98.2 F 90 16 166/96 96 11/08/21 02:18 79 16 11/08/21 00:58 98.0 F 79 16 111/67 95 11/07/21 20:47 78 16 11/07/21 19:03 98.5 F 78 16 169/83 98 11/07/21 17:50 73 18 172/92 99 11/07/21 12:40 98 F 85 18 107/74 97 Intake and Output 11/07/21 11/08/21 11/08/21 22:59 06:59 14:59 Other: Voiding Method Toilet Toilet Bedside Commode # Voids 1 1 Weight 53.07 kg GENERAL EXAM: Patient is alert and oriented and doesn't appear to be in any acute distress but seemed to be not comfortable HEENT: Normocephalic. Normal reaction of pupils, equal size, normal range of extraocular motion. No erythema or exudates in the throat. NECK: No masses, no nuchal rigidity. CHEST: No chest wall deformity. LUNGS: Equal air entry with no crackles or wheeze. HEART: S1 and S2 normal with no audible mumurs or gallops. Regular rhythm, femorals equal on both sides.. ABDOMEN: No hepatosplenomegaly, normal bowel sounds, no guarding or rigidity. SKIN: No rashes CENTRAL NERVOUS SYSTEM: No focal deficits. EXTREMITIES: The left arm is in the sling Results 11/08/21 06:38 11/08/21 03:27 Cardiac Enzymes 11/07/21 11/07/21 11/08/21 Range/Units 13:03 13:03 00:25 AST 25 (14-36) U/L Troponin I <0.012 <0.012 (0.000-0.034) ng/mL 11/08/21 11/08/21 11/08/21 Range/Units 03:27 03:27 06:38 AST 18 (14-36) U/L Troponin I <0.012 <0.012 (0.000-0.034) ng/mL Coagulation 11/07/21 Range/Units 13:03 PT 9.5 (9.0-12.0) sec APTT 22.3 (22.0-30.0) sec CBC 11/07/21 11/08/21 Range/Units 13:03 06:38 WBC 10.6 9.67 (3.8-10.6) k/uL RBC 3.64 L 3.37 L (3.80-5.40) m/uL Hgb 12.4 11.4 L (11.4-16.0) gm/dL Hct 38.0 35.9 L (34.0-46.0) % Plt Count 225 180 (150-450) k/uL Comprehensive Metabolic Panel 11/07/21 11/08/21 Range/Units 13:03 03:27 Sodium 135 L 140 (137-145) mmol/L Potassium 4.0 3.6 (3.5-5.1) mmol/L Chloride 99 103 (98-107) mmol/L Carbon Dioxide 29 24.6 (22-30) mmol/L BUN 22 H 13.3 (7-17) mg/dL Creatinine 0.70 0.5 L (0.52-1.04) mg/dL Glucose 114 H 93 (74-99) mg/dL Calcium 9.5 8.7 (8.4-10.2) mg/dL AST 25 18 (14-36) U/L ALT 6 15 (4-34) U/L Alkaline Phosphatase 86 78 (38-126) U/L Total Protein 6.2 L 5.3 L (6.3-8.2) g/dL Albumin 4.0 3.7 L (3.5-5.0) g/dL Current Medications Generic Name Dose Route Start Last Admin Trade Name Freq PRN Reason Stop Dose Admin Acetaminophen 650 mg 11/07/21 15:20 Acetaminophen Tab 325 Mg Tab PO Q6HR PRN Mild Pain or Fever > 100.5 Atorvastatin Calcium 20 mg 11/07/21 21:00 11/07/21 20:47 Atorvastatin 20 Mg Tab PO 20 mg HS DANIELA Administration Carbidopa/Levodopa 1 each 11/08/21 09:00 11/08/21 08:31 Carbidopa-Levodopa Er 50-200mg 1 Each Tablet.Er PO 1 each TID@0900,1200,1600 DANIELA Administration Diltiazem HCl 60 mg 11/08/21 09:45 11/08/21 10:13 Diltiazem Oral 60 Mg Tab PO 60 mg TID DANIELA Administration Docusate Sodium 100 mg 11/08/21 09:00 11/08/21 08:30 Docusate 100 Mg Cap PO 100 mg DAILY DANIELA Administration Folic Acid 1 mg 11/08/21 12:00 Folic Acid 1 Mg Tab PO DAILY@1200 DANIELA Hydromorphone HCl 0.5 mg 11/07/21 15:20 11/08/21 00:28 Hydromorphone 0.5 Mg/0.5 Ml Syringe IVP 0.5 mg Q3HR PRN Administration Moderate Pain Potassium Chloride/Sodium Chloride 1,000 mls @ 50 mls/hr 11/07/21 16:00 11/08/21 11:10 Ns-Kcl 20 Meq/L Iv Solution IV 50 mls/hr .Q20H DANIELA Administration Lactobacillus Acidoph/Bulgaricus 1 each 11/07/21 21:00 11/08/21 11:08 Lactobacillus Acidoph & Bulgar 1 Each Packet PO Not Given BID DANIELA Levothyroxine Sodium 75 mcg 11/08/21 06:30 11/08/21 05:29 Levothyroxine 75 Mcg Tab PO 75 mcg 0630 DANIELA Administration Montelukast Sodium 10 mg 11/07/21 21:00 11/07/21 20:47 Montelukast 10 Mg Tab PO 10 mg HS DANIELA Administration Multivitamins 1 each 11/08/21 12:00 Multivitamins, Thera 1 Each Tab PO DAILY@1200 DANIELA Naloxone HCl 0.2 mg 11/07/21 15:20 Naloxone 0.4 Mg/Ml 1 Ml Vial IV Q2M PRN Opioid Reversal Thiamine HCl 100 mg 11/08/21 12:00 Thiamine 100 Mg Tab PO DAILY@1200 DANIELA Tramadol HCl 50 mg 11/07/21 16:45 11/08/21 08:30 Tramadol 50 Mg Tab PO 50 mg Q6HR PRN Administration Pain Intake and Output 11/07/21 11/08/21 11/08/21 22:59 06:59 14:59 Other: Voiding Method Toilet Toilet Bedside Commode # Voids 1 1 Weight 53.07 kg 11/08/21 06:38 11/08/21 03:27 EKG Interpretations (text) Sinus rhythm with delta waves suggestive of W PW syndrome. A she has a narrow complex tachycardia Assessment and Plan (1) WPW (Xidks-Mrwhlofky-Gefef syndrome) Current Visit: Yes Status: Acute Code(s): I45.6 - PRE-EXCITATION SYNDROME SNOMED Code(s): 67606285 (2) SVT (supraventricular tachycardia) Current Visit: Yes Status: Acute Code(s): I47.1 - SUPRAVENTRICULAR TACHYCARDIA SNOMED Code(s): 5171830 (3) Syncope Current Visit: Yes Status: Acute Code(s): R55 - SYNCOPE AND COLLAPSE SNOMED Code(s): 912905748 (4) Hypertension, essential Current Visit: Yes Status: Acute Code(s): I10 - ESSENTIAL (PRIMARY) HYPERTENSION SNOMED Code(s): 99172390 Plan: Continue current medical therapy. EP evaluation
[2021-11-08] MEDS: THIAMINE 100 MG TAB PO SCH (12:59)
[2021-11-08] MEDS: FOLIC ACID 1 MG TAB PO SCH (12:59)
[2021-11-08] MEDS: MULTIVITAMINS, THERA 1 EACH TAB PO SCH (12:59)
[2021-11-08 14:24] LABS: Acanthocytes 2+; Basophils # (A) 0.03 X 10*3/uL (0.00-0.10); Basophils % (A) 0.3 %; Eosinophils # (A) 0.15 X 10*3/uL (0.04-0.35); Eosinophils % (A) 1.6 %; Lymphocytes # (A) 1.15 X 10*3/uL (0.90-5.00); Lymphocytes % (A) 11.9 %; Monocytes # (A) 1.28 X 10*3/uL (0.20-1.00); Monocytes % (A) 13.2 %; Neutrophils # (A) 7.02 X 10*3/uL (1.80-7.70); Neutrophils % (A) 72.6 %
[2021-11-08] MEDS: FLECAINIDE 50 MG TAB PO SCH ×2 (14:51→20:17)
--- NOTE | 2021-11-08 15:51 | P.PN ---
Subjective Progress Note Date: 11/08/21 This is a 81-year-old female who was recently admitted with recent proximal right humerus fracture and was discharged home and continued with weakness and has had multiple falls with presyncopal events and is being closely monitored. Patient continued on telemetry monitoring and had a brief episode of SVT and going in and out of and started on IV Cardizem with cardiology consulted. EKG showed abnormal EKG with possible Khanna Parkinson syndrome and also consulted Dr. Roque or possibly EP study. Patient has converted and has been started on flecainide and oral Cardizem and will continue to closely monitor. Recommend continue telemetry. Patient is extremely weak and will have PT/OT evaluate the patient and social work also consulted with possible ECF being planned. Labs: White blood count is 9.67, hemoglobin is 11.4, platelets are 180, sodium is 140, potassium is 3.6, BUN is 13.3, creatinine is 0.5, calcium is 8.7, serial troponins have been negative, urinalysis is negative. Review of systems: Constitutional: no reports of fatigue, no reports of fever, or chills Cardiovascular: No reports of chest pain or palpitations Respiratory: No reports of shortness of breath or cough GI: No reports of nausea, vomiting, or diarrhea : No reports of dysuria or retention Neurovascular: Reports generalized weakness, reports right arm pain All medications have been reviewed Active Medications Acetaminophen (Acetaminophen Tab 325 Mg Tab) 650 mg PO Q6HR PRN PRN Reason: Mild Pain or Fever > 100.5 Atorvastatin Calcium (Atorvastatin 20 Mg Tab) 20 mg PO HS [facility] Last Admin: 11/07/21 20:47 Dose: 20 mg Documented by: Carbidopa/Levodopa (Carbidopa-Levodopa Er 50-200mg 1 Each Tablet.Er) 1 each PO TID@0900,1200,1600 [facility] Last Admin: 11/08/21 13:06 Dose: 1 each Documented by: Diltiazem HCl (Diltiazem Oral 60 Mg Tab) 60 mg PO TID [facility] Last Admin: 11/08/21 10:13 Dose: 60 mg Documented by: Docusate Sodium (Docusate 100 Mg Cap) 100 mg PO DAILY [facility] Last Admin: 11/08/21 08:30 Dose: 100 mg Documented by: Flecainide Acetate (Flecainide 50 Mg Tab) 50 mg PO Q12HR [facility] Last Admin: 11/08/21 14:51 Dose: 50 mg Documented by: Folic Acid (Folic Acid 1 Mg Tab) 1 mg PO DAILY@1200 [facility] Last Admin: 11/08/21 12:59 Dose: 1 mg Documented by: Hydromorphone HCl (Hydromorphone 0.5 Mg/0.5 Ml Syringe) 0.5 mg IVP Q3HR PRN PRN Reason: Moderate Pain Last Admin: 11/08/21 00:28 Dose: 0.5 mg Documented by: Potassium Chloride/Sodium Chloride (Ns-Kcl 20 Meq/L Iv Solution) 1,000 mls @ 50 mls/hr IV .Q20H [facility] Last Admin: 11/08/21 11:10 Dose: 50 mls/hr Documented by: Lactobacillus Acidoph/Bulgaricus (Lactobacillus Acidoph & Bulgar 1 Each Packet) 1 each PO BID [facility] Last Admin: 11/08/21 11:08 Dose: Not Given Documented by: Levothyroxine Sodium (Levothyroxine 75 Mcg Tab) 75 mcg PO 0630 [facility] Last Admin: 11/08/21 05:29 Dose: 75 mcg Documented by: Montelukast Sodium (Montelukast 10 Mg Tab) 10 mg PO HS [facility] Last Admin: 11/07/21 20:47 Dose: 10 mg Documented by: Multivitamins (Multivitamins, Thera 1 Each Tab) 1 each PO DAILY@1200 [facility] Last Admin: 11/08/21 12:59 Dose: 1 each Documented by: Naloxone HCl (Naloxone 0.4 Mg/Ml 1 Ml Vial) 0.2 mg IV Q2M PRN PRN Reason: Opioid Reversal Thiamine HCl (Thiamine 100 Mg Tab) 100 mg PO DAILY@1200 [facility] Last Admin: 11/08/21 12:59 Dose: 100 mg Documented by: Tramadol HCl (Tramadol 50 Mg Tab) 50 mg PO Q6HR PRN PRN Reason: Pain Last Admin: 11/08/21 08:30 Dose: 50 mg Documented by: Physical exam: Gen: This is a 81-year-old female awake, and oriented 3. Temp is 97.9F, pulse is 75, respirations are 17, blood pressure is 121/65, oxygen saturation is 97% on room air HEENT: Head is atraumatic, normocephalic. Pupils equal, round. Sclerae is anicteric. NECK: Supple. No JVD. No lymphadenopathy. No thyromegaly. LUNGS: Diminished breath sounds bilaterally with a few scattered rhonchi noted. No intercostal retractions. HEART: S1, S2 are muffled ABDOMEN: Soft. Bowel sounds are present. No masses. No tenderness. EXTREMITIES: No pedal edema. No calf tenderness. 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 PT/OT to evaluate the patient as patient continues to be weak and having multiple falls. Social work also consulted and following the patient. Cardiology has evaluated the patient and also consulted Dr. Roque or possible EP study regarding SVT and possible Zaira Parkinson White syndrome. Patient was an [employer] this morning she was found to be in SVT on telemetry. Cardiology is following and 2-D echo is ordered and pending. Discussed with the patient and family about possible ECF for rehab and they continue to be reluctant and would like to take the patient home and states they are having other family members come to the home to help care for the patient. Will repeat a.m. labs and continue gentle IV hydration for now. Due to multiple complex medical issues, prognosis is guarded. Further recommendations to follow based on the clinical course of the patient. Objective - Vital Signs Vital signs: Vital Signs Temp 98.2 F 11/08/21 07:00 Pulse 90 11/08/21 08:00 Resp 16 11/08/21 08:00 BP 166/96 11/08/21 07:00 Pulse Ox 96 11/08/21 07:00 Intake & Output 11/07/21 11/08/21 11/08/21 18:59 06:59 18:59 Weight 53.07 kg Other: Voiding Method Toilet Bedside Commode # Voids 1 - Labs CBC & Chem 7: 11/08/21 06:38 11/08/21 03:27 Labs: Abnormal Lab Results - Last 24 Hours (Table) 11/07/21 11/07/21 11/07/21 Range/Units 13:03 13:03 17:50 RBC 3.64 L (3.80-5.40) m/uL Hgb (12.0-15.0) g/dL Hct (37.2-46.3) % MCV 104.4 H (80.0-100.0) fL MCH (27.0-32.0) pg MCHC (32.0-37.0) g/dL MPV (9.5-12.2) fL Neutrophils # 8.4 H (1.3-7.7) k/uL Lymphocytes # 0.9 L (1.0-4.8) k/uL Monocytes # 1.1 H (0-1.0) k/uL Sodium 135 L (137-145) mmol/L BUN 22 H (7-17) mg/dL Creatinine (0.6-1.5) mg/dL BUN/Creatinine Ratio (12.00-20.00) Ratio Glucose 114 H (74-99) mg/dL POC Glucose (mg/dL) (75-99) mg/dL Total Protein 6.2 L (6.3-8.2) g/dL Albumin (3.8-4.9) g/dL Urine Protein 1+ H (Negative) Urine Bacteria Rare H (None) /hpf Hyaline Casts 5 H (0-2) /lpf Urine Mucus Occasional H (None) /hpf 11/08/21 11/08/21 11/08/21 Range/Units 00:08 03:27 06:38 RBC 3.37 L (3.80-5.40) m/uL Hgb 11.4 L (12.0-15.0) g/dL Hct 35.9 L (37.2-46.3) % MCV 106.5 H (80.0-100.0) fL MCH 33.8 H (27.0-32.0) pg MCHC 31.8 L (32.0-37.0) g/dL MPV 12.4 H (9.5-12.2) fL Neutrophils # (1.3-7.7) k/uL Lymphocytes # (1.0-4.8) k/uL Monocytes # (0-1.0) k/uL Sodium (137-145) mmol/L BUN (7-17) mg/dL Creatinine 0.5 L (0.6-1.5) mg/dL BUN/Creatinine Ratio 24.91 H (12.00-20.00) Ratio Glucose (74-99) mg/dL POC Glucose (mg/dL) 100 H (75-99) mg/dL Total Protein 5.3 L (6.3-8.2) g/dL Albumin 3.7 L (3.8-4.9) g/dL Urine Protein (Negative) Urine Bacteria (None) /hpf Hyaline Casts (0-2) /lpf Urine Mucus (None) /hpf
--- NOTE | 2021-11-08 18:31 | P.EPCON ---
Electrophysiology Consult - EP Consult Electrophysiology Consult: This is Dr. Roque dictating a consult on this patient The patient was interviewed and examined IMPRESSION / ASSESSMENT: Recurrent narrow complex supraventricular tachycardia Baseline 12-lead EKG shows antegrade accessory pathway conduction with positive delta waves in lead V1 and negative in the inferior leads Recurrent falls and syncope, traumatic Frailty PLAN: Continue Cardizem and may switch to long-acting Cardizem 180 mg by mouth daily Start flecainide 50 mg twice daily Check TSH Consider EP study and ablation after about a month She has a left-sided inferior/posterior accessory pathway and will require heparinization through the procedure and aspirin for a month thereafter HPI Patient was admitted with a fall with fracture of the right humerus The chart state that she had syncope The patient states that she fell She denies any palpitations at all ROS: No fever chills or rigors, no cough, phlegm or expectoration, no nausea, vomiting or diarrhea, no hematuria, dysuria, no musculoskeletal complaints, no strokes or seizures, no skin lesions. EXAMINATION: Pulse rate in the 70s afebrile 97.9F, blood pressure 121/65 mmHg Breath sounds are reduced bilaterally Normal heart sounds REVIEW OF LABS, ECG & MEDICAL DATA 11.4 hemoglobin Sodium 140, potassium 3.6 BUN 13 and creatinine 0.5 Normal cardiac enzymes
[2021-11-08] MEDS: MONTELUKAST 10 MG TAB PO SCH (20:17)
[2021-11-08] MEDS: ATORVASTATIN 20 MG TAB PO SCH (20:17)
[2021-11-08] MEDS ORDERED: QUEtiapine 25 MG TAB PO STA (22:12)
[2021-11-09] MEDS: LEVOTHYROXINE 75 MCG TAB PO SCH (05:06)
[2021-11-09] MEDS: 0.9% NACL WITH KCL 20 MEQ/L 1,000 ML IV SCH (07:24)
[2021-11-09] MEDS: DILTIAZEM ORAL 60 MG TAB PO SCH ×2 (07:24→14:48)
[2021-11-09] MEDS: FLECAINIDE 50 MG TAB PO SCH (07:24)
[2021-11-09] MEDS: CARBIDOPA-LEVODOPA ER 50-200MG 1 EACH TABLET.ER PO SCH ×3 (07:24→14:48)
[2021-11-09] MEDS: DOCUSATE 100 MG CAP PO SCH (07:25)
[2021-11-09] MEDS: LACTOBACILLUS ACIDOPH & BULGAR 1 EACH PACKET PO SCH (07:25)
[2021-11-09 08:06] VITALS: RESP 16
--- NOTE | 2021-11-09 10:42 | P.PN ---
Subjective Progress Note Date: 11/09/21 HISTORY OF PRESENT ILLNESS: 11/08/2021 This is a 81-year-old female who was recently admitted to the hospital with a fall and fracture of the humerus. Patient was advised conservative management by orthopedics. She was advised to go to have a rehab center but apparently the family wanted to take her home. She was brought back again with 2 falls at home and possible syncope. While she was on the floor last night patient developed SVT with heart rates of 200. 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 However her SVT was a narrow complex. Patient was given IV Cardizem and patient remained in sinus rhythm. Today patient claims this is having a lot of pain in the shoulder. Otherwise, she seemed to be alert, somewhat oriented. Patient is switching from IV Cardizem to by mouth Cardizem. I discussed with the Dr. Roque. Because of recurrent falls and syncope and evidence of SVT associated with the WPW. She may need EP evaluation. Patient is going to be seen by Dr. Rouqe today. 11/09/2021 Patient examined this morning at the bedside. She denies chest pain or pressure. Denies SOB. telemetry reveals sinus mechanism. Vital signs are stable. She complains of pain in her right shoulder. PHYSICAL EXAM: VITAL SIGNS: Reviewed. GENERAL: Well-developed in no acute distress. NECK: Supple. No JVD or thyromegaly LUNGS: Respirations even and unlabored. Lungs essentially clear to auscultation bilaterally. HEART: Regular rate and rhythm. S1 and S2 heard. EXTREMITIES: Normal range of motion. No clubbing or cyanosis. Peripheral pulses intact. No lower extremity edema ASSESSMENT: Recurrent falls and syncope Recurrent narrow complex supraventricular tachycardia WPW syndrome PLAN: Continue current cardiac medications Continue telemetry monitoring Patient may be discharged today from a cardiac standpoint. She is to follow up outpatient. Possible EP study and ablation in the future with Dr. Roque Nurse practitioner note has been reviewed by physician. Signing provider agrees with the documented findings, assessment, and plan of care. Objective - Vital Signs Vital signs: Vital Signs Temp 97.8 F 11/09/21 08:00 Pulse 67 11/09/21 08:00 Resp 16 11/09/21 08:00 BP 182/78 11/09/21 08:00 Pulse Ox 96 11/09/21 08:00 Intake & Output 11/08/21 11/09/21 11/09/21 18:59 06:59 18:59 Intake Total 300 Balance 300 Intake: Oral 300 Other: Voiding Method Bedside Commode Bedside Commode # Voids 3 1 - Labs CBC & Chem 7: 11/08/21 06:38 11/08/21 03:27 Labs: Abnormal Lab Results - Last 24 Hours (Table) 11/08/21 11/08/21 Range/Units 03:27 06:38 RBC 3.37 L (4.10-5.20) X 10*6/uL Hgb 11.4 L (12.0-15.0) g/dL Hct 35.9 L (37.2-46.3) % MCV 106.5 H (80.0-97.0) fL MCH 33.8 H (27.0-32.0) pg MCHC 31.8 L (32.0-37.0) g/dL MPV 12.4 H (9.5-12.2) fL Monocytes # 1.28 H (0.20-1.00) X 10*3/uL Creatinine 0.5 L (0.6-1.5) mg/dL BUN/Creatinine Ratio 24.91 H (12.00-20.00) Ratio Total Protein 5.3 L (6.2-8.2) g/dL Albumin 3.7 L (3.8-4.9) g/dL
[2021-11-09] MEDS: MULTIVITAMINS, THERA 1 EACH TAB PO SCH (11:47)
[2021-11-09] MEDS: THIAMINE 100 MG TAB PO SCH (11:48)
[2021-11-09] MEDS: FOLIC ACID 1 MG TAB PO SCH (11:48)
--- NOTE | 2021-11-09 12:30 | P.DS ---
Providers Date of admission: 11/08/21 09:35 Expected date of discharge: 11/09/21 Attending physician: Toribio Obregon Consults: 11/08/21 00:14 Consult Physician Stat Consulting Provider: Db Roque Consult Reason/Comments: svt Do you want consulting provider notified?: Already Contacted Primary care physician: Kiran Keller Hospital Course: Final diagnosis Multiple falls and gait dysfunction Syncope and presyncope for evaluation Supraventricular tachycardia Possible Zaira Parkinson White syndrome Hyponatremia Possible dehydration, present on admission Increased mean corpuscle volume history of recent right humerus fracture Asthma Hypertension Hyperlipidemia Hypothyroidism History of osteoporosis history of varicose veins history of irritable bowel syndrome History of Parkinson's disease History of breast surgery history of hysterectomy history of anxiety Mild protein calorie malnutrition with a body mass index of 21.4 Full code Discharge disposition Patient is being discharged in a stable condition with guarded prognosis to [facility] for continued PT/OT therapy. Patient will follow-up with Dr. Keller in the outpatient setting upon discharge. Patient is to also follow-up with Dr. Roque in 4 weeks as scheduled. She will need outpatient follow-up with orthopedics in 1-2 weeks as well. Total time taken is greater than 35 minutes. Hospital course This is an 81-year-old female who was recently admitted with continued weakness and more frequent falls and presyncopal events and was being closely monitored. Patient was evaluated by cardiology and placed on IV Cardizem and has transitioned oral Cardizem and also started on flecainide. Concerns for possible Zaira Parkinson White syndrome and Dr. Roque evaluated the patient and recommending further studies in the outpatient setting of possible EP in the next 4 weeks and to continue with current medication regimen. Recommend repeat labs in 2-3 days and prescription provided for CBC and BMP. She is to continue with right arm sling and follow-up in the outpatient setting with Dr. Damian orthopedics in 1-2 weeks for right proximal humerus fracture. Currently no reports of chest pain, shortness of breath, or palpitations. Patient is afebrile. No reports of nausea or vomiting and patient is tolerating diet. Patient will be going to [facility] today. Guarded prognosis. On exam vital signs are stable. Cardio S1, S2 are muffled. Respiratory system shows diminished breath sounds at the bases with no wheezing or rhonchi noted. Abdomen is soft and nontender. Nervous system shows diffuse weakness. Please refer to medication reconciliation sheet for a list of medications. Patient Condition at Discharge: Stable Plan - Discharge Summary Discharge Rx Participant: No New Discharge Prescriptions: New Diltiazem Oral [Cardizem*] 60 mg PO TID tab Flecainide [Tambocor] 50 mg PO Q12HR tab Continue Cetirizine HCl [Zyrtec] 10 mg PO DAILY Levothyroxine Sodium [Synthroid] 75 mcg PO DAILY Simvastatin [Zocor] 40 mg PO HS Montelukast [Singulair] 10 mg PO HS Carbidopa-Levodopa ER 50-200Mg [Sinemet CR 50-200 mg] 1 tab PO TID@0900,1200,1600 L.acidoph,Paracasei, B.lactis [Probiotic] 1 cap PO BID Docusate [Colace] 100 mg PO DAILY #30 capsule Folic Acid 1 mg PO DAILY@1200 30 Days #30 tab Acetaminophen Tab [Tylenol] 650 mg PO Q6HR PRN #30 tab PRN Reason: Mild Pain Or Fever > 100.5 Thiamine [Vitamin B-1] 100 mg PO DAILY@1200 #30 tab Multivitamins, Thera [Multivitamin (formulary)] 1 tab PO DAILY@1200 traMADol HCl [Ultram] 50 mg PO Q6HR PRN #6 tab PRN Reason: Pain Discontinued Enalapril/Hydrochlorothiazide [Vaseretic 5-12.5 mg] 1 tab PO DAILY Discharge Medication List Cetirizine HCl [Zyrtec] 10 mg PO DAILY 12/14/14 [History] Levothyroxine Sodium [Synthroid] 75 mcg PO DAILY 12/14/14 [History] Montelukast [Singulair] 10 mg PO HS 12/14/14 [History] Simvastatin [Zocor] 40 mg PO HS 12/14/14 [History] Carbidopa-Levodopa ER 50-200Mg [Sinemet CR 50-200 mg] 1 tab PO TID@0900,1200,1600 11/04/21 [History] L.acidoph,Paracasei, B.lactis [Probiotic] 1 cap PO BID 11/04/21 [History] Acetaminophen Tab [Tylenol] 650 mg PO Q6HR PRN #30 tab 11/06/21 [Rx] Docusate [Colace] 100 mg PO DAILY #30 capsule 11/06/21 [Rx] Folic Acid 1 mg PO DAILY@1200 30 Days #30 tab 11/06/21 [Rx] Thiamine [Vitamin B-1] 100 mg PO DAILY@1200 #30 tab 11/06/21 [Rx] Multivitamins, Thera [Multivitamin (formulary)] 1 tab PO DAILY@1200 11/07/21 [History] Diltiazem Oral [Cardizem*] 60 mg PO TID tab 11/09/21 [Rx] Flecainide [Tambocor] 50 mg PO Q12HR tab 11/09/21 [Rx] traMADol HCl [Ultram] 50 mg PO Q6HR PRN #6 tab 11/09/21 [Rx] Follow up Appointment(s)/Referral(s): Kiran Keller MD [Primary Care Provider] - 1-2 days Db Roque MD [STAFF PHYSICIAN] - 4 Weeks Ambulatory/Diagnostic Orders: Complete Blood Count w/diff [LAB.AMB] Time Frame: 2 Days, Location: None Selected Activity/Diet/Wound Care/Special Instructions: Patient is going to [facility] Activity as tolerated Follow-up with primary care provider on discharge Follow-up orthopedics outpatient in 2 weeks Continue with right arm sling Continue current medications Recommend repeat labs of CBC and BMP in 2-3 days Continue regular diet Follow-up cardiology Dr. Roque outpatient in 4 weeks for possible EP study Discharge Disposition: TRANSFER TO SNF/F
[2021-11-09] MEDS: traMADol 50 MG TAB PO PRN (14:48)
[2021-11-09 15:58] VITALS: BP 152/78; PULSE 73; TEMP 99.2
== END 2021-11-09 17:57 | DRG 309 ==
LOC: EC 12:33 → 6NMEDSUR 15:20 → OBSVTOIN 11-08 09:35
PROVIDERS: ADMIT Hospitalist; ATTEND Hospitalist
DX: I45.6 Pre-excitation syndrome (principal); E44.1 Mild protein-calorie malnutrition; E87.1 Hypo-osmolality and hyponatremia; I47.1 Supraventricular tachycardia; E86.0 Dehydration; R55 Syncope and collapse; E03.9 Hypothyroidism, unspecified; Z68.21 Body mass index [BMI] 21.0-21.9, adult; E78.5 Hyperlipidemia, unspecified; G20 Parkinson's disease; I10 Essential (primary) hypertension; J44.9 Chronic obstructive pulmonary disease, unspecified; M81.0 Age-related osteoporosis without current pathological fracture; R29.6 Repeated falls; Z79.890 Hormone replacement therapy; Z20.822 Contact with and (suspected) exposure to COVID-19; Z79.899 Other long term (current) drug therapy; Z90.710 Acquired absence of both cervix and uterus; S42.301D Unspecified fracture of shaft of humerus, right arm, subsequent encounter for fracture with routine healing; W01.0XXD Fall on same level from slipping, tripping and stumbling without subsequent striking against object, subsequent encounter; I83.90 Asymptomatic varicose veins of unspecified lower extremity; K58.9 Irritable bowel syndrome, unspecified; F41.9 Anxiety disorder, unspecified
CPT/HCPCS: 36415; 70450; 71046; 80053; 81001; 83735; 84484; 85025; 85610; 85730; 87635; 93005; 99285